=== PATIENT | male | born 1955 | race Caucasian/White ===

== ENCOUNTER 2016-07-17 19:30 | Emergency (ER) | payer MEDICARE, OTHER ==
[~2016-07-17 19:30] MED LIST: /ADVA50050 INH; /DICL25CA PO; /DILT60TAB PO; /METO5TA PO; /TAMS4CA PO; /WARF25TA PO; /WARF5TA PO; ACET65TA PO; ADV250INH INH; ALBU0.084 INH; ALBU17IN INH; ALTA1.25 PO; AMLO5TAB2 PO; ASPI32ECTA PO; ASPI81TA51 PO; ASPI81TA85 PO; ASPI81TAEC PO; ATROVENT0.02% INH; AUGM875T27 PO; AZIT250T3 PO; BABY81CH PO; CEFT500T PO; CEPH500C PO; CLOBETASOL PROP TOP; CLOP75TA2 PO; COLA100C PO; COLA100C2 OR; COLA100C2 PO; CRES20TA PO; DILA100C PO; DO NOT TAKE; DOXY75CA3 PO; DRIS1CAP PO; DULCOLAX PO; DULCOLAX PR; FINA5TAB2 PO; FISHOIL XX; FLOM5CAP PO; HYDR12.56 PO; IPRASOL12 IN; IPRASOL4 INH; LAMO150T PO; LAMO200T PO; LAMO300T PO; LEUP375KIT IM; LEVO500T PO; LISI2.5T PO; MULTIVIT PO; NEXI40CA PO; NYAM10003 TOP; OMEP20CA3 PO; PLAV75TA38 PO; PRED10TA2 PO; PRED20TA PO; PROAAER INH; Proscar PO; RAMI1.25 PO; REGL5TAB2 PO; SENO8.6T9 PO; SIMV20TA2 PO; TERA1CA PO; TYLE325T5 PO; VENTAER IN; VENTAER INH; VIMP200T PO; VITA500T3 PO; WARF2.5T38 PO; ZEST2.5T PO; ZEST5TAB PO; ZOLO50TA PO; ZYRT10TA2 PO; [UNRECOGNIZED DRUG - CODE] TOP
[2016-07-17 21:20] LABS: BASO # 0.1 K/mm3 (0.0-0.2); EOS # 0.5 K/mm3 (0.0-0.50); EOS % 5.1 % (0.0-3.0); LARGE UNSTAINED CELL # 0.1 K/mm3 (0.0-0.4); LARGE UNSTAINED CELL % 0.9 % (0.0-4.0); LYMPH # 1.3 K/mm3 (1.5-4.5); LYMPH % 11.1 % (24.0-44.0); MEAN CORPUSCULAR HEMOGLOBIN 29.2 pg (27.0-33.0); MEAN CORPUSCULAR HGB CONC 33.1 g/dl (32.0-36.5); MEAN CORPUSCULAR VOLUME 88.4 fl (80.0-96.0); MONO # 0.6 K/mm3 (0.0-0.8); MONO % 5.9 % (0.0-5.0); NEUTROPHILS # 7.9 K/mm3 (1.8-7.7); NEUTROPHILS % 76.1 % (36.0-66.0); PLATELET COUNT, AUTOMATED 203 k/mm3 (150-450); RED CELL DISTRIBUTION WIDTH 13.5 % (11.5-14.5); WHITE BLOOD COUNT 10.4 K/mm3 (4.0-10.0)
[2016-07-17 21:41] LABS: INR 0.96
[2016-07-17 21:50] LABS: ALBUMIN 2.9 GM/DL (3.2-5.2); ALBUMIN/GLOBULIN RATIO 0.94 (1.00-1.93); ALKALINE PHOSPHATASE 94 U/L (45-117); ALT/SGPT 19 U/L (12-78); AMYLASE 25 U/L (25-115); ANION GAP 9 MEQ/L (8-16); AST/SGOT 11 U/L (15-37); BILIRUBIN,DIRECT < 0.1 MG/DL (0.0-0.2); BILIRUBIN,TOTAL 0.3 MG/DL (0.2-1.0); BLOOD UREA NITROGEN 8 MG/DL (7-18); CALCIUM LEVEL 8.1 MG/DL (8.8-10.2); CARBON DIOXIDE LEVEL 31 MEQ/L (21-32); CHLORIDE LEVEL 101 MEQ/L (98-107); GLOMERULAR FILTRATION RATE > 60.0 (>49); GLUCOSE, FASTING 142 MG/DL (80-110); POTASSIUM SERUM 3.3 MEQ/L (3.5-5.1); SODIUM LEVEL 141 MEQ/L (136-145)
[2016-07-17] MEDS ORDERED: ONDANSETRON 4MG/2ML VIAL (J2405) As Ordered ONE (23:49)
[2016-07-18] MEDS ORDERED: ISOVUE-370 76% 100ML VIAL (Q9967) As Ordered ONE (00:18)
--- NOTE | 2016-07-18 02:20 | REPUSA ---
CLINICAL HISTORY: Abdominal pain. TECHNIQUE: Multiple axial, sagittal and coronal CT images were obtained through the abdomen and pelvi s after administration of intravenous contrast material. COMMENTS: Compared to 02/14/16 study. The liver is of uniform attenuation without mass or defect. There is no intra or extrahepatic biliary ductal dilatation. The spleen is normal. The gallbladder is within normal limits. The pancreas is of normal contour and attenuation characteristics. There is no evidence of adrenal mass. Both kidneys demonstrate prompt and equal nephrograms. The kidneys are normal in size, shape and conf iguration. There is no evidence of renal or ureteral mass. No renal or ureteral calculi are identifie d. There is mild bilateral hydroureteronephrosis noted. Bilateral extrarenal pelvii are noted. No evidence for appendicitis. There is no bowel wall thickening. No evidence for small or large sugar l obstruction. There is no evidence of abdominal ascites or lymphadenopathy. Patel catheter is in place. Air is present within urinary bladder. Diffuse bladder wall thickening seen compatible with cystitis. There is no evidence of intrinsic or extrinsic bladder mass. There is no pelvic ascites or lymphadenopathy. Images of the lung bases show no evidence of pleural or parenchymal mass. There are no pleural effusi ons. The bony structures are free of lytic or blastic lesions. Multilevel degenerative changes are seen in volving the thoracolumbar spine. Moderate compression deformities of T12 and L3. Scattered calcifications are seen involving the aorta and major branches compatible with atherosclero sis. IMPRESSION: Diffuse bladder wall thickening seen compatible with cystitis. Mild bilateral hydroureteronephrosis. Thank you for your kind referral of this patient.
[2016-07-18] MEDS ORDERED: CEPHALEXIN 250 MG CAP As Ordered ONE (03:02)
--- NOTE | 2016-07-18 03:21 | EDDOCDS ---
Physician Documentation [facility] Name: Mosby Alicea Age: 61 yrs Sex: Male : 1955 Arrival Date: 07/17/2016 Time: 19:30 Bed OBSERVATION Private MD: Laila Alvarado Disposition: 07/18/16 02:52 Discharged to Home/Self Care. Impression: Acute cystitis with hematuria. - Condition is Stable. - Discharge Instructions: Hematuria, Adult, Urinary Tract Infection, Urinary Tract Infection, [id number]. - Prescriptions for Keflex 500 mg Oral Capsule - take 1 capsule by ORAL route every 6 hours for 10 days; 40 capsule. - Medication Reconciliation, Local Pharmacy Hours form. - Follow up: Private Physician; When: Call to arrange an appointment; Reason: Continuance of care. - Problem is an acute exacerbation. - Symptoms have improved. - Notes: FOLLOW UP WITH YOUR PRIMARY UROLOGIST IN [place]. Historical: - Allergies: Cardizem; Cipro PO; SULFA (SULFONAMIDES); zonisamide; - Home Meds: 1. Oxygen continuous \T\ 4L NC 2. albuterol sulfate 90 mcg/actuation Inhl HFAA 1 puff every 6 hours 3. aspirin 325 mg oral tab once daily 4. Altace 1.25 mg Oral cap 1 cap once daily 5. Colace 100 mg oral cap 1 cap once daily 6. finasteride 5 mg oral tab 1 tab once daily 7. Plavix 75 mg Oral tab 1 tab once daily 8. lamotrigine 300 mg Oral tr24 1 tab twice a day 9. Flomax 0.4 mg Oral cp24 2 caps once daily 10. Vimpat 200 mg oral tab 2 tab 2 times per day 11. Reglan 5 mg Oral tab tid 12. loratadine 10 mg Oral tab 1 tab once daily 13. omeprazole 40 mg Oral cpDR 1 cap once daily 14. rosuvastatin 20 mg oral tab 1 tab once daily 15. Zyrtec 10 mg Oral tab 1 tab once daily - PMHx: BPH; COPD; CVA; Hypercholesterolemia; Myocardial infarction; Seizure Disorder; Sleep Apnea w/ CPAP; UTI; [place]; - PSHx: none; - Social history: Smoking status: Patient states former smoker of tobacco. 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 - Family history: Not pertinent. - : The pt / caregiver states he / she is on anticoagulants: Plavix. Home medication list is obtained from family members. - Exposure Risk Screening:: None identified. Vital Signs: 07/17 19:41 BP 121 / 82; Pulse 87; Resp 16; Temp 97.1(O); Pulse Ox 97% on 4 lpm NC; Weight 127.01 tm5 kg / 280.01 lbs; Height 6 ft. 1 in. (185.42 cm); Pain 0/10; 20:44 BP 126 / 87 (auto/); tm5 20:44 Pulse 90 MON; Pulse Ox 96% ; tm5 21:14 BP 135 / 81 (auto/); tm5 21:14 Pulse 90 MON; Pulse Ox 97% ; tm5 21:44 BP 118 / 63 (auto/); tm5 21:44 Pulse 86 MON; Resp 20 S; Pulse Ox 98% on 4 lpm NC; Pain 0/10; tm5 22:14 BP 110 / 72 (auto/); tm5 22:14 Pulse 82 MON; Pulse Ox 98% ; tm5 22:44 BP 119 / 75 (auto/); tm5 22:44 Pulse 78 MON; Resp 20 S; Pulse Ox 96% on 4 lpm NC; Pain 0/10; tm5 23:14 BP 146 / 84 (auto/); tm5 23:14 Pulse 78 MON; Pulse Ox 97% ; tm5 23:44 BP 149 / 90 (auto/); tm5 23:44 Pulse 90 MON; Resp 20 S; Pulse Ox 98% on 4 lpm NC; tm5 07/18 00:14 BP 118 / 76 (auto/); tm5 00:14 Pulse 80 MON; Resp 20 S; Pulse Ox 97% on 4 lpm NC; Pain 0/10; tm5 02:01 BP 118 / 74 (auto/); tm5 02:01 Pulse 70 MON; Resp 16 S; Pulse Ox 98% on 4 lpm NC; Pain 0/10; tm5 07/17 19:41 Body Mass Index 36.94 (127.01 kg, 185.42 cm) tm5 MDM: 07/17 20:48 IV Saline Lock ordered. mm11 20:48 Undress patient appropriately for examination ordered. mm11 20:48 Patel - [address] ordered. mm11 20:48 Bladder Irrigation ordered. mm11 20:49 Amylase Ordered. EDMS 20:49 Basic Metabolic Profile Ordered. EDMS 20:49 CBC with Diff Ordered. EDMS 20:49 Lipase Ordered. EDMS 20:49 Liver Profile Ordered. EDMS 20:49 Partial Thromboplastin Time Ordered. EDMS 20:49 Prothrombin Time Profile\E\INR Ordered. EDMS 20:49 Urinalysis Ordered. EDMS 20:50 Urine Culture Ordered. EDMS 20:50 NOTHING BY MOUTH+DIET ordered. EDMS 22:00 Basic Metabolic Profile Reviewed. mm11 22:00 CBC with Diff Reviewed. mm11 22:00 Liver Profile Reviewed. mm11 22:00 Urinalysis Reviewed. mm11 22:00 Amylase Reviewed. mm11 22:00 Lipase Reviewed. mm11 22:00 Partial Thromboplastin Time Reviewed. mm11 22:00 Prothrombin Time Profile\E\INR Reviewed. mm11 23:37 Financial registration complete. [email or web address] 23:42 [facility] Payment Agreement was scanned into [employer] and attached to record. [email or web address] 23:49 Ondansetron 4 mg IVP once ordered. mm11 23:50 CT ABD & PELVIS: IV Contrast Only Ordered. EDMS 07/18 02:38 CT ABD & PELVIS: IV Contrast Only Reviewed. mm11 02:51 Cephalexin 500 mg PO once ordered. mm11 Administered Medications: 07/17 23:50 Drug: Ondansetron 4 mg [ondansetron HCl 2 mg/mL intravenous solution (2 mL)] Route: tm5 IVP; Site: left forearm; 07/18 00:19 Follow up: Response: Nausea is decreased; No Adverse Reaction tm5 03:18 Drug: Cephalexin 500 mg [cephalexin 250 mg capsule (2 caps)] Route: PO; tm5 03:18 Follow up: Response: Pt left department before re-evaluation is appropriate tm5 Signatures: Dispatcher [employer] EDMS Adam Dempsey DO DO mm11 Marissa Alvarez, Reg Reg [email or web address] Vane Sanford RN RN tm5 The chart was reviewed and I authenticate all verbal orders and agree with the evaluation and treatment provided.Attachments: 07/17 23:42 [facility] Payment Agreement [email or web address]
--- NOTE | 2016-07-18 03:21 | EDDOCDS ---
Nurse's Notes [facility] Name: Laz Alicea Age: 61 yrs Sex: Male : 1955 Arrival Date: 07/17/2016 Time: 19:30 Bed OBSERVATION Private MD: Laila Alvarado Diagnosis: Acute cystitis with hematuria Presentation: 07/17 19:34 Presenting complaint: EMS states: per EMS pt here for Blood noted to Newberry catheter pt tm5 has been home form a Rehab center for only a few days now, public health nurse sent here for evaluation, pt wears O2 \T\ 2L NC at all times, pt complains of chills. Suicide/Homicide risk assessment- the patient denies having any suicidal and/or homicidal ideations and does not present with any other emotional, behavioral or mental health complaints. Status: Patient is not a retail service representative or dependent. Transition of care: patient was not received from another setting of care. 19:34 Acuity: STEPHON Level 3 tm5 19:34 Method Of Arrival: Ambulance tm5 07/18 03:20 Adult Sepsis Screening: The patient does not have new or worsening altered mentation. tm5 Patient's respiratory rate is less than 22. Systolic blood pressure is greater than 100. Patient has a qSOFA score of 0- Negative Sepsis Screen. Triage Assessment: 07/17 19:41 General: Appears in no apparent distress, Behavior is appropriate for age, cooperative. tm5 Pain: Denies pain. HIV screening NA for this visit Offered previously. The patient is triaged at the bedside. See Assessment in Nurses Notes section of ED record. Neurological: Level of Consciousness is awake, alert, Oriented to person, place, time. Respiratory: Airway is patent Respiratory effort is even, unlabored, Respiratory pattern is regular, symmetrical, Breath sounds are clear bilaterally. : Newberry in place Reports hematuria gross amounts of blood noted to pt's newberry. Derm: Skin is pink, warm & dry. normal. Historical: - Allergies: Cardizem; Cipro PO; SULFA (SULFONAMIDES); zonisamide; - Home Meds: 1. Oxygen continuous \T\ 4L NC 2. albuterol sulfate 90 mcg/actuation Inhl HFAA 1 puff every 6 hours 3. aspirin 325 mg oral tab once daily 4. Altace 1.25 mg Oral cap 1 cap once daily 5. Colace 100 mg oral cap 1 cap once daily 6. finasteride 5 mg oral tab 1 tab once daily 7. Plavix 75 mg Oral tab 1 tab once daily 8. lamotrigine 300 mg Oral tr24 1 tab twice a day 9. Flomax 0.4 mg Oral cp24 2 caps once daily 10. Vimpat 200 mg oral tab 2 tab 2 times per day 11. Reglan 5 mg Oral tab tid 12. loratadine 10 mg Oral tab 1 tab once daily 13. omeprazole 40 mg Oral cpDR 1 cap once daily 14. rosuvastatin 20 mg oral tab 1 tab once daily 15. Zyrtec 10 mg Oral tab 1 tab once daily - PMHx: BPH; COPD; CVA; Hypercholesterolemia; Myocardial infarction; Seizure Disorder; Sleep Apnea w/ CPAP; UTI; Pnemonia; - PSHx: none; - Social history: Smoking status: Patient states former smoker of tobacco. 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 - Family history: Not pertinent. - : The pt / caregiver states he / she is on anticoagulants: Plavix. Home medication list is obtained from family members. - Exposure Risk Screening:: None identified. Screenin:45 Screening information is obtained from the patient. Fall risk: At risk due to gait tm5 disturbance. Assistance ADL's: Requires assistance with meal preparation, this assistance is provided by bathing, assistance is provided by dressing, assistance is provided by toileting, assistance is provided by ambulation, assistance is provided by housework, assistance is provided by medication administration, assistance is provided by family members. Abuse/DV Screen: The patient / caregiver reports he/she is: not in a situation that causes fear, pain or injury. Nutritional screening: No deficits noted. Advance Directives: Currently, there is no health care proxy. There is no active DNR order. home support is adequate. Assessment: 00:50 General: called to pt's room by his son, CBI is leaking from pt's penis & his bed is tm5 saturated with NS solution from irrigation bag, complete bed change done by this RN, pt's newberry was irrigated with 60cc NS with blood clots returned in syringe, newberry now patent with pink tinged urine, no blood clots noted, emptied 1100cc from newberry drainage bag unsure of how much if this is NS irrigation fluid vs. Urine, irrigation stopped at this time to re-assess newberry drainage & blood return, pt voices no complaints of bladder discomfort or pain, pt was repositioned several times with bed change when pt was sat up in bed he vomited about 200cc of emesis, MD aware orders received . 19:45 General: see triage assessment . tm5 22:15 Reassessment: Patient appears in no apparent distress at this time. Patient denies pain tm5 at this time. 22:48 Reassessment: Patient appears in no apparent distress at this time. Patient denies pain tm5 at this time. Patient states symptoms have improved. bladder irrigation continues, urine in newberry is less bloody, light red in color, no blood clots noted, pt voices no complaints. 07/18 00:49 General: newberry catheter had to be irrigated again with 60cc NS, small blood clot tm5 returned but newberry started again to drain pink tinged urine, pt voices no complaints of at this time. Pain: Denies pain. 01:59 Reassessment: Patient appears in no apparent distress at this time. Patient states tm5 feeling better. Patient states symptoms have improved. pt appears to be sleeping at this time, resp easy, no s/s of any distress. 03:18 Reassessment: catheter plug inserted to irrigation port on 3 way catheter for pt's tm5 discharge. Vital Signs: 07/17 19:41 BP 121 / 82; Pulse 87; Resp 16; Temp 97.1(O); Pulse Ox 97% on 4 lpm NC; Weight 127.01 tm5 kg; Height 6 ft. 1 in. (185.42 cm); Pain 0/10; 20:44 BP 126 / 87 (auto/); tm5 20:44 Pulse 90 MON; Pulse Ox 96% ; tm5 21:14 BP 135 / 81 (auto/); tm5 21:14 Pulse 90 MON; Pulse Ox 97% ; tm5 21:44 BP 118 / 63 (auto/); tm5 21:44 Pulse 86 MON; Resp 20 S; Pulse Ox 98% on 4 lpm NC; Pain 0/10; tm5 22:14 BP 110 / 72 (auto/); tm5 22:14 Pulse 82 MON; Pulse Ox 98% ; tm5 22:44 BP 119 / 75 (auto/); tm5 22:44 Pulse 78 MON; Resp 20 S; Pulse Ox 96% on 4 lpm NC; Pain 0/10; tm5 23:14 BP 146 / 84 (auto/); tm5 23:14 Pulse 78 MON; Pulse Ox 97% ; tm5 23:44 BP 149 / 90 (auto/); tm5 23:44 Pulse 90 MON; Resp 20 S; Pulse Ox 98% on 4 lpm NC; tm5 07/18 00:14 BP 118 / 76 (auto/); tm5 00:14 Pulse 80 MON; Resp 20 S; Pulse Ox 97% on 4 lpm NC; Pain 0/10; tm5 02:01 BP 118 / 74 (auto/); tm5 02:01 Pulse 70 MON; Resp 16 S; Pulse Ox 98% on 4 lpm NC; Pain 0/10; tm5 07/17 19:41 Body Mass Index 36.94 (127.01 kg, 185.42 cm) tm5 Vitals: 07/17 19:41 Log In Time N/A - ambulance arrival. tm5 ED Course: 19:31 Crystal Phoenix,JOHN is Primary Nurse. [facility] 19:31 Patient visited by Bekah Gan, Director Of Instructional Technology. jlm 19:31 Laila Alvarado is Private Physician. jl 19:31 Patient moved to 13 jl 19:34 Patient visited by Vane Sanford,JOHN. tm5 19:36 Triage Initiated tm5 19:45 Awaiting ED physician evaluation. tm5 19:45 The patient / caregiver is instructed regarding the plan of care and ED course. Pulse tm5 ox on. NIBP on. 19:45 pt arrived with indwelling catheter from Rehab facility per EMS. tm5 20:18 Patient visited by Vane Sanford,JOHN. tm5 20:18 Awaiting ED physician evaluation. tm5 20:32 Adam Dempsey DO is Attending Physician. mm11 20:32 Patient visited by Adam Dempsey DO. mm11 20:47 Patient visited by Adam Dempsey DO. mm11 21:08 Amylase Sent. tm5 21:08 Basic Metabolic Profile Sent. tm5 21:08 CBC with Diff Sent. tm5 21:08 Lipase Sent. tm5 21:08 Liver Profile Sent. tm5 21:09 Partial Thromboplastin Time Sent. tm5 21:09 Prothrombin Time Profile\E\INR Sent. tm5 21:09 Inserted saline lock: 18 gauge in left forearm and blood collected. The patient tm5 tolerated the procedure well. Labs drawn. (by ED staff). Sent per order to lab. 21:35 Newberry cath removed intact, balloon deflated, indwelling newberry catheter removed per tm5 orders to replace it with 3 way newberry for irrigation, approx 300 cc of bloody tinged urine emptied from this newberry, pt tolerated well. 21:36 Newberry cath inserted 18 Fr. Balloon inflated. To gravity drainage. Urine specimen tm5 collected. other 3 way newberry inserted for bladder irrigation returned bloody urine. Patient tolerated well. Bladder irrigated via Newberry normal saline returned bloddy pink tinged urine with shreds of blood clots noted Patient tolerated well. 22:15 Patient visited by Vane Sanford RN. tm5 22:48 Patient visited by Vane Sanford RN. tm5 22:57 Primary Nurse role handed off by Crystal Phoenix RN [id number] 23:42 [facility] Payment Agreement was scanned into [employer] and attached to record. [id number] 23:54 Patient visited by Adam Dempsey DO. mm11 07/18 00:[address] back [address]. tm5 00:55 Patient visited by Vane Sanford RN. tm5 01:01 Patient moved to OBSERVATION mm11 02:24 CT ABD & PELVIS: IV Contrast Only Returned. EDMS 03:18 Discontinued lock intact, bleeding controlled, pressure dressing applied, No tm5 redness/swelling at site. 03:18 No procedures done that require assistance. tm5 Administered Medications: 07/17 23:50 Drug: Ondansetron 4 mg [ondansetron HCl 2 mg/mL intravenous solution (2 mL)] Route: tm5 IVP; Site: left forearm; 07/18 00:19 Follow up: Response: Nausea is decreased; No Adverse Reaction tm5 03:18 Drug: Cephalexin 500 mg [cephalexin 250 mg capsule (2 caps)] Route: PO; tm5 03:18 Follow up: Response: Pt left department before re-evaluation is appropriate tm5 Output: 07/17 21:36 Urine: 1300.00ml (Newberry); Total: 1300.00ml. tm5 22:48 Urine: 700.00ml (Newberry); Total: 2000.00ml. tm5 23:44 Urine: 1100.00ml (Newberry); Total: 3100.00ml. tm5 07/18 02:01 Urine: 800.00ml (Newberry); Total: 3900.00ml. tm5 Order Results: Lab Order: Amylase; SPEC'M 07/17/16 21:07 Test: AMYLASE; Value: 25; Range: 25-115; Units: U/L; Status: F Lab Order: Basic Metabolic Profile; SPEC'M 07/17/16 21:07 Test: GLUCOSE, FASTING; Value: 142; Range: 80-110; Abnormal: Above high normal; Units: MG/DL; Status: F Test: BLOOD UREA NITROGEN; Value: 8; Range: 7-18; Units: MG/DL; Status: F Test: CREATININE FOR GFR; Value: 1.00; Range: 0.70-1.30; Units: MG/DL; Status: F Test: GLOMERULAR FILTRATION RATE; Value: > 60.0; Range: >49; Status: F Test: SODIUM LEVEL; Value: 141; Range: 136-145; Units: MEQ/L; Status: F Test: POTASSIUM SERUM; Value: 3.3; Range: 3.5-5.1; Abnormal: Below low normal; Units: MEQ/L; Status: F Test: CHLORIDE LEVEL; Value: 101; Range: 98-107; Units: MEQ/L; Status: F Test: CARBON DIOXIDE LEVEL; Value: 31; Range: 21-32; Units: MEQ/L; Status: F Test: ANION GAP; Value: 9; Range: 8-16; Units: MEQ/L; Status: F Test: CALCIUM LEVEL; Value: 8.1; Range: 8.8-10.2; Abnormal: Below low normal; Units: MG/DL; Status: F Test Note: ; Units are mL/min/1.73 m2 Chronic Kidney Disease Staging per NKF: Stage I & II GFR >=60 Normal to Mildly Decreased Stage III GFR 30-59 Moderately Decreased Stage IV GFR 15-29 Severely Decreased Stage V GFR <15 Very Little GFR Left ESRD GFR <15 on PRESENTATION TEAM MEMBER Lab Order: CBC with Diff; SPEC'M 07/17/16 21:07 Test: WHITE BLOOD COUNT; Value: 10.4; Range: 4.0-10.0; Abnormal: Above high normal; Units: K/mm3; Status: F Test: RED BLOOD COUNT; Value: 4.35; Range: 4.30-6.10; Units: M/mm3; Status: F Test: HEMOGLOBIN; Value: 12.7; Range: 14.0-18.0; Abnormal: Below low normal; Units: g/dl; Status: F Test: HEMATOCRIT; Value: 38.4; Range: 42.0-52.0; Abnormal: Below low normal; Units: %; Status: F Test: MEAN CORPUSCULAR VOLUME; Value: 88.4; Range: 80.0-96.0; Units: fl; Status: F Test: MEAN CORPUSCULAR HEMOGLOBIN; Value: 29.2; Range: 27.0-33.0; Units: pg; Status: F Test: MEAN CORPUSCULAR HGB CONC; Value: 33.1; Range: 32.0-36.5; Units: g/dl; Status: F Test: RED CELL DISTRIBUTION WIDTH; Value: 13.5; Range: 11.5-14.5; Units: %; Status: F Test: PLATELET COUNT, AUTOMATED; Value: 203; Range: 150-450; Units: k/mm3; Status: F Test: NEUTROPHILS %; Value: 76.1; Range: 36.0-66.0; Abnormal: Above high normal; Units: %; Status: F Test: LYMPH %; Value: 11.1; Range: 24.0-44.0; Abnormal: Below low normal; Units: %; Status: F Test: MONO %; Value: 5.9; Range: 0.0-5.0; Abnormal: Above high normal; Units: %; Status: F Test: EOS %; Value: 5.1; Range: 0.0-3.0; Abnormal: Above high normal; Units: %; Status: F Test: BASO %; Value: 1.0; Range: 0.0-1.0; Units: %; Status: F Test: LARGE UNSTAINED CELL %; Value: 0.9; Range: 0.0-4.0; Units: %; Status: F Test: NEUTROPHILS #; Value: 7.9; Range: 1.8-7.7; Abnormal: Above high normal; Units: K/mm3; Status: F Test: LYMPH #; Value: 1.3; Range: 1.5-4.5; Abnormal: Below low normal; Units: K/mm3; Status: F Test: MONO #; Value: 0.6; Range: 0.0-0.8; Units: K/mm3; Status: F Test: EOS #; Value: 0.5; Range: 0.0-0.50; Units: K/mm3; Status: F Test: BASO #; Value: 0.1; Range: 0.0-0.2; Units: K/mm3; Status: F Test: LARGE UNSTAINED CELL #; Value: 0.1; Range: 0.0-0.4; Units: K/mm3; Status: F Lab Order: Lipase; [facility] 07/17/16 21:07 Test: LIPASE; Value: 112; Range: 73-393; Units: U/L; Status: F Lab Order: Liver Profile; [facility] 07/17/16 21:07 Test: AST/SGOT; Value: 11; Range: 15-37; Abnormal: Below low normal; Units: U/L; Status: F Test: ALT/SGPT; Value: 19; Range: 12-78; Units: U/L; Status: F Test: ALKALINE PHOSPHATASE; Value: 94; Range: 45-117; Units: U/L; Status: F Test: BILIRUBIN,TOTAL; Value: 0.3; Range: 0.2-1.0; Units: MG/DL; Status: F Test: BILIRUBIN,DIRECT; Value: < 0.1; Range: 0.0-0.2; Units: MG/DL; Status: F Test: TOTAL PROTEIN; Value: 6.0; Range: 6.4-8.2; Abnormal: Below low normal; Units: GM/DL; Status: F Test: ALBUMIN; Value: 2.9; Range: 3.2-5.2; Abnormal: Below low normal; Units: GM/DL; Status: F Test: ALBUMIN/GLOBULIN RATIO; Value: 0.94; Range: 1.00-1.93; Abnormal: Below low normal; Status: F Lab Order: Partial Thromboplastin Time; [facility] 07/17/16 21:07 Test: PARTIAL THROMBOPLASTIN TIME; Value: 28.1; Range: 26.6-37.1; Units: SECONDS; Status: F Lab Order: Prothrombin Time Profile\E\INR; [facility] 07/17/16 21:07 Test: PROTHROMBIN TIME; Value: 12.9; Range: 12.3-14.5; Units: SECONDS; Status: F Test: INR; Value: 0.96; Status: F Test Note: ; THERAPUTIC HUMAN INR VALUES INDICATIONS NORMAL RANGES PROPHYLAXIS/TREATMENT OF: VENOUS THROMBOSIS 2.0-3.0 PULMONARY EMBOLISM 2.0-3.0 PREVENTION OF SYSTEMIC EMBOLISM FROM: TISSUE HEART VALVES 2.0-3.0 ACUTE MYOCARDIAL INFARCTION 2.0-3.0 VALVULAR HEART DISEASE 2.0-3.0 ATRIAL FIBRILLATION 2.0-3.0 MECHANICAL VALVES(HIGH RISK) 2.5-3.5 RECURRENT MYOCARDIAL INFARCTION 2.5-3.5 Lab Order: Urinalysis; [facility] 07/17/16 21:07 Test: APPEARANCE, URINE; Value: CLOUDY; Range: CLEAR; Abnormal: Above high normal; Status: F Test: COLOR, URINE; Value: RED; Range: YELLOW; Abnormal: Above high normal; Status: F Test: PH,URINE; Value: 6.0; Range: 5.0-9.0; Units: UNITS; Status: F Test: SPECIFIC GRAVITY URINE AUTO; Value: 1.006; Range: 1.002-1.035; Status: F Test: PROTEIN, URINE AUTO; Value: 1+; Range: NEGATIVE; Abnormal: Above high normal; Units: mg/dL; Status: F Test: GLUCOSE, URINE (UA) AUTO; Value: NEGATIVE; Range: NEGATIVE; Units: mg/dL; Status: F Test: KETONE, URINE AUTO; Value: NEGATIVE; Range: NEGATIVE; Units: mg/dL; Status: F Test: UROBILINOGEN, URINE AUTO; Value: 0.2; Range: 0.0-2.0; Units: mg/dL; Status: F Test: BILIRUBIN, URINE AUTO; Value: NEGATIVE; Range: NEGATIVE; Status: F Test: NITRITE, URINE AUTO; Value: NEGATIVE; Range: NEGATIVE; Status: F Test: LEUKOCYTE ESTERASE, URINE AUTO; Value: 3+; Range: NEGATIVE; Abnormal: Above high normal; Status: F Test: BLOOD, URINE BLOOD; Value: 3+; Range: NEGATIVE; Abnormal: Above high normal; Status: F Test: WBC, URINE AUTO; Value: TNTC; Range: 0-3; Abnormal: Above high normal; Units: /HPF; Status: F Test: RBC, URINE AUTO; Value: TNTC; Range: 0-3; Abnormal: Above high normal; Units: /HPF; Status: F Test: BACTERIA, URINE AUTO; Value: 1+; Range: NEGATIVE; Abnormal: Above high normal; Status: F Test: SQUAMOUS EPITHELIAL CELL UR AU; Value: 0; Range: 0-6; Units: /HPF; Status: F Test: MUCUS, URINE; Value: SMALL; Range: NEGATIVE; Status: F Test: HYALINE CAST, URINE AUTO; Value: 0; Range: 0-1; Units: /LPF; Status: F Radiology Order: CT ABD & PELVIS: IV Contrast Only Test: CT ABD & PELVIS: IV Contrast Only REASON FOR EXAMINATION: abd pain, gross hematuria; ; CLINICAL HISTORY: Abdominal pain.; TECHNIQUE: Multiple axial, sagittal and coronal CT images were obtained through the abdomen and pelvi; s after administration of intravenous contrast material.; COMMENTS: Compared to 02/14/16 study.; The liver is of uniform attenuation without mass or defect. There is no intra or extrahepatic biliary; ductal dilatation. The spleen is normal. The gallbladder is within normal limits. The pancreas is of; normal contour and attenuation characteristics. There is no evidence of adrenal mass.; Both kidneys demonstrate prompt and equal nephrograms. The kidneys are normal in size, shape and conf; iguration. There is no evidence of renal or ureteral mass. No renal or ureteral calculi are identifie; d. There is mild bilateral hydroureteronephrosis noted. Bilateral extrarenal pelvii are noted.; No evidence for appendicitis. There is no bowel wall thickening. No evidence for small or large sugar; l obstruction. There is no evidence of abdominal ascites or lymphadenopathy.; Newberry catheter is in place. Air is present within urinary bladder. Diffuse bladder wall thickening; seen compatible with cystitis. There is no evidence of intrinsic or extrinsic bladder mass. There is; no pelvic ascites or lymphadenopathy.; Images of the lung bases show no evidence of pleural or parenchymal mass. There are no pleural effusi; ons.; The bony structures are free of lytic or blastic lesions. Multilevel degenerative changes are seen in; volving the thoracolumbar spine. Moderate compression deformities of T12 and L3.; Scattered calcifications are seen involving the aorta and major branches compatible with atherosclero; sis.; IMPRESSION:; Diffuse bladder wall thickening seen compatible with cystitis.; Mild bilateral hydroureteronephrosis.; Thank you for your kind referral of this patient.; ; Outcome: 02:52 Discharge ordered by Provider. mm11 03:18 Discharge Assessment: Patient awake, alert and oriented x 3. No cognitive and/or tm5 functional deficits noted. Patient verbalized understanding of disposition instructions. patient administered narcotics - no. The following High Risk Discharge criteria are identified: None. Discharged to home via wheelchair, with family. Condition: good Condition: stable Condition: improved. Discharge instructions given to patient, Instructed on discharge instructions, follow up and referral plans. medication usage, Demonstrated understanding of instructions, medications, Pt was receptive of discharge instructions/ teaching. Prescriptions given X 1. CT Study completed. Property :Personal belongings accompany Pt. 03:20 Patient left the ED. tm5 Signatures: Dispatcher [employer] EDMS Adam Dempsey, DO mm11 Bekah Gan, Director Of Instructional Technology Unit Crystal Toro,JOHN RN [id number] Marissa Alvarez, Reg Reg [id number] Vane Sanford RN RN tm5 MTDD
--- NOTE | 2016-07-20 04:22 | EDDOCDS ---
Physician Documentation [facility] Name: Troy Alicea Age: 61 yrs Sex: Male : 1955 Arrival Date: 07/17/2016 Time: 19:30 Bed OBSERVATION Private MD: Laila Alvarado Disposition: 07/18/16 02:52 Discharged to Home/Self Care. Impression: Acute cystitis with hematuria. - Condition is Stable. - Discharge Instructions: Hematuria, Adult, Urinary Tract Infection, Urinary Tract Infection, [id number]. - Prescriptions for Keflex 500 mg Oral Capsule - take 1 capsule by ORAL route every 6 hours for 10 days; 40 capsule. - Medication Reconciliation, Local Pharmacy Hours form. - Follow up: Private Physician; When: Call to arrange an appointment; Reason: Continuance of care. - Problem is an acute exacerbation. - Symptoms have improved. - Notes: FOLLOW UP WITH YOUR PRIMARY UROLOGIST IN [place]. Historical: - Allergies: Cardizem; Cipro PO; SULFA (SULFONAMIDES); zonisamide; - Home Meds: 1. Oxygen continuous \T\ 4L NC 2. albuterol sulfate 90 mcg/actuation Inhl HFAA 1 puff every 6 hours 3. aspirin 325 mg oral tab once daily 4. Altace 1.25 mg Oral cap 1 cap once daily 5. Colace 100 mg oral cap 1 cap once daily 6. finasteride 5 mg oral tab 1 tab once daily 7. Plavix 75 mg Oral tab 1 tab once daily 8. lamotrigine 300 mg Oral tr24 1 tab twice a day 9. Flomax 0.4 mg Oral cp24 2 caps once daily 10. Vimpat 200 mg oral tab 2 tab 2 times per day 11. Reglan 5 mg Oral tab tid 12. loratadine 10 mg Oral tab 1 tab once daily 13. omeprazole 40 mg Oral cpDR 1 cap once daily 14. rosuvastatin 20 mg oral tab 1 tab once daily 15. Zyrtec 10 mg Oral tab 1 tab once daily - PMHx: BPH; COPD; CVA; Hypercholesterolemia; Myocardial infarction; Seizure Disorder; Sleep Apnea w/ CPAP; UTI; [place]; - PSHx: none; - Social history: Smoking status: Patient states former smoker of tobacco. 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 - Family history: Not pertinent. - : The pt / caregiver states he / she is on anticoagulants: Plavix. Home medication list is obtained from family members. - Exposure Risk Screening:: None identified. Vital Signs: 07/17 19:41 BP 121 / 82; Pulse 87; Resp 16; Temp 97.1(O); Pulse Ox 97% on 4 lpm NC; Weight 127.01 tm5 kg / 280.01 lbs; Height 6 ft. 1 in. (185.42 cm); Pain 0/10; 20:44 BP 126 / 87 (auto/); tm5 20:44 Pulse 90 MON; Pulse Ox 96% ; tm5 21:14 BP 135 / 81 (auto/); tm5 21:14 Pulse 90 MON; Pulse Ox 97% ; tm5 21:44 BP 118 / 63 (auto/); tm5 21:44 Pulse 86 MON; Resp 20 S; Pulse Ox 98% on 4 lpm NC; Pain 0/10; tm5 22:14 BP 110 / 72 (auto/); tm5 22:14 Pulse 82 MON; Pulse Ox 98% ; tm5 22:44 BP 119 / 75 (auto/); tm5 22:44 Pulse 78 MON; Resp 20 S; Pulse Ox 96% on 4 lpm NC; Pain 0/10; tm5 23:14 BP 146 / 84 (auto/); tm5 23:14 Pulse 78 MON; Pulse Ox 97% ; tm5 23:44 BP 149 / 90 (auto/); tm5 23:44 Pulse 90 MON; Resp 20 S; Pulse Ox 98% on 4 lpm NC; tm5 07/18 00:14 BP 118 / 76 (auto/); tm5 00:14 Pulse 80 MON; Resp 20 S; Pulse Ox 97% on 4 lpm NC; Pain 0/10; tm5 02:01 BP 118 / 74 (auto/); tm5 02:01 Pulse 70 MON; Resp 16 S; Pulse Ox 98% on 4 lpm NC; Pain 0/10; tm5 07/17 19:41 Body Mass Index 36.94 (127.01 kg, 185.42 cm) tm5 MDM: 07/17 20:48 IV Saline Lock ordered. mm11 20:48 Undress patient appropriately for examination ordered. mm11 20:48 Patel - [address] ordered. mm11 20:48 Bladder Irrigation ordered. mm11 20:49 Amylase Ordered. EDMS 20:49 Basic Metabolic Profile Ordered. EDMS 20:49 CBC with Diff Ordered. EDMS 20:49 Lipase Ordered. EDMS 20:49 Liver Profile Ordered. EDMS 20:49 Partial Thromboplastin Time Ordered. EDMS 20:49 Prothrombin Time Profile\E\INR Ordered. EDMS 20:49 Urinalysis Ordered. EDMS 20:50 Urine Culture Ordered. EDMS 20:50 NOTHING BY MOUTH+DIET ordered. EDMS 22:00 Basic Metabolic Profile Reviewed. mm11 22:00 CBC with Diff Reviewed. mm11 22:00 Liver Profile Reviewed. mm11 22:00 Urinalysis Reviewed. mm11 22:00 Amylase Reviewed. mm11 22:00 Lipase Reviewed. mm11 22:00 Partial Thromboplastin Time Reviewed. mm11 22:00 Prothrombin Time Profile\E\INR Reviewed. mm11 23:37 Financial registration complete. [id number] 23:42 [facility] Payment Agreement was scanned into [employer] and attached to record. [id number] 23:49 Ondansetron 4 mg IVP once ordered. mm11 23:50 CT ABD & PELVIS: IV Contrast Only Ordered. EDCA 07/18 02:38 CT ABD & PELVIS: IV Contrast Only Reviewed. mm11 02:51 Cephalexin 500 mg PO once ordered. 11 :28 T-Sheet-- Draft Copy was scanned into [employer] and attached to record. klr Administered Medications: 07/17 23:50 Drug: Ondansetron 4 mg [ondansetron HCl 2 mg/mL intravenous solution (2 mL)] Route: tm5 IVP; Site: left forearm; 07/18 00:19 Follow up: Response: Nausea is decreased; No Adverse Reaction tm5 03:18 Drug: Cephalexin 500 mg [cephalexin 250 mg capsule (2 caps)] Route: PO; tm5 03:18 Follow up: Response: Pt left department before re-evaluation is appropriate tm5 Signatures: Dispatcher [employer] EDMS Adam Dempsey DO DO mm11 Marissa Alvarez, Reg Reg [email or web address] Radha Levin Tonya, RN RN tm5 The chart was reviewed and I authenticate all verbal orders and agree with the evaluation and treatment provided.Attachments: 07/17 23:42 [facility] Payment Agreement [facility] 07/18 22:28 T-Sheet-- Draft Copy klr Chart Complete MTDD
--- NOTE | 2016-07-20 04:22 | EDDOCDS ---
Nurse's Notes [facility] Name: Laz Alicea Age: 61 yrs Sex: Male : 1955 Arrival Date: 07/17/2016 Time: 19:30 Bed OBSERVATION Private MD: Laila Alvarado Diagnosis: Acute cystitis with hematuria Presentation: 07/17 19:34 Presenting complaint: EMS states: per EMS pt here for Blood noted to Newberry catheter pt tm5 has been home form a Rehab center for only a few days now, public health nurse sent here for evaluation, pt wears O2 \T\ 2L NC at all times, pt complains of chills. Suicide/Homicide risk assessment- the patient denies having any suicidal and/or homicidal ideations and does not present with any other emotional, behavioral or mental health complaints. 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 Transition of care: patient was not received from another setting of care. 19:34 Acuity: STEPHON Level 3 tm5 19:34 Method Of Arrival: Ambulance tm5 07/18 03:20 Adult Sepsis Screening: The patient does not have new or worsening altered mentation. tm5 Patient's respiratory rate is less than 22. Systolic blood pressure is greater than 100. Patient has a qSOFA score of 0- Negative Sepsis Screen. Triage Assessment: 07/17 19:41 General: Appears in no apparent distress, Behavior is appropriate for age, cooperative. tm5 Pain: Denies pain. HIV screening NA for this visit Offered previously. The patient is triaged at the bedside. See Assessment in Nurses Notes section of ED record. Neurological: Level of Consciousness is awake, alert, Oriented to person, place, time. Respiratory: Airway is patent Respiratory effort is even, unlabored, Respiratory pattern is regular, symmetrical, Breath sounds are clear bilaterally. : Newberry in place Reports hematuria gross amounts of blood noted to pt's newberry. Derm: Skin is pink, warm & dry. normal. Historical: - Allergies: Cardizem; Cipro PO; SULFA (SULFONAMIDES); zonisamide; - Home Meds: 1. Oxygen continuous \T\ 4L NC 2. albuterol sulfate 90 mcg/actuation Inhl HFAA 1 puff every 6 hours 3. aspirin 325 mg oral tab once daily 4. Altace 1.25 mg Oral cap 1 cap once daily 5. Colace 100 mg oral cap 1 cap once daily 6. finasteride 5 mg oral tab 1 tab once daily 7. Plavix 75 mg Oral tab 1 tab once daily 8. lamotrigine 300 mg Oral tr24 1 tab twice a day 9. Flomax 0.4 mg Oral cp24 2 caps once daily 10. Vimpat 200 mg oral tab 2 tab 2 times per day 11. Reglan 5 mg Oral tab tid 12. loratadine 10 mg Oral tab 1 tab once daily 13. omeprazole 40 mg Oral cpDR 1 cap once daily 14. rosuvastatin 20 mg oral tab 1 tab once daily 15. Zyrtec 10 mg Oral tab 1 tab once daily - PMHx: BPH; COPD; CVA; Hypercholesterolemia; Myocardial infarction; Seizure Disorder; Sleep Apnea w/ CPAP; UTI; Pnemonia; - PSHx: none; - Social history: Smoking status: Patient states former smoker of tobacco. 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 - Family history: Not pertinent. - : The pt / caregiver states he / she is on anticoagulants: Plavix. Home medication list is obtained from family members. - Exposure Risk Screening:: None identified. Screenin:45 Screening information is obtained from the patient. Fall risk: At risk due to gait tm5 disturbance. Assistance ADL's: Requires assistance with meal preparation, this assistance is provided by bathing, assistance is provided by dressing, assistance is provided by toileting, assistance is provided by ambulation, assistance is provided by housework, assistance is provided by medication administration, assistance is provided by family members. Abuse/DV Screen: The patient / caregiver reports he/she is: not in a situation that causes fear, pain or injury. Nutritional screening: No deficits noted. Advance Directives: Currently, there is no health care proxy. There is no active DNR order. home support is adequate. Assessment: 00:50 General: called to pt's room by his son, CBI is leaking from pt's penis & his bed is tm5 saturated with NS solution from irrigation bag, complete bed change done by this RN, pt's newberry was irrigated with 60cc NS with blood clots returned in syringe, newberry now patent with pink tinged urine, no blood clots noted, emptied 1100cc from newberry drainage bag unsure of how much if this is NS irrigation fluid vs. Urine, irrigation stopped at this time to re-assess newberry drainage & blood return, pt voices no complaints of bladder discomfort or pain, pt was repositioned several times with bed change when pt was sat up in bed he vomited about 200cc of emesis, MD aware orders received . 19:45 General: see triage assessment . tm5 22:15 Reassessment: Patient appears in no apparent distress at this time. Patient denies pain tm5 at this time. 22:48 Reassessment: Patient appears in no apparent distress at this time. Patient denies pain tm5 at this time. Patient states symptoms have improved. bladder irrigation continues, urine in newberry is less bloody, light red in color, no blood clots noted, pt voices no complaints. 07/18 00:49 General: newberry catheter had to be irrigated again with 60cc NS, small blood clot tm5 returned but newberry started again to drain pink tinged urine, pt voices no complaints of at this time. Pain: Denies pain. 01:59 Reassessment: Patient appears in no apparent distress at this time. Patient states tm5 feeling better. Patient states symptoms have improved. pt appears to be sleeping at this time, resp easy, no s/s of any distress. 03:18 Reassessment: catheter plug inserted to irrigation port on 3 way catheter for pt's tm5 discharge. Vital Signs: 07/17 19:41 BP 121 / 82; Pulse 87; Resp 16; Temp 97.1(O); Pulse Ox 97% on 4 lpm NC; Weight 127.01 tm5 kg; Height 6 ft. 1 in. (185.42 cm); Pain 0/10; 20:44 BP 126 / 87 (auto/); tm5 20:44 Pulse 90 MON; Pulse Ox 96% ; tm5 21:14 BP 135 / 81 (auto/); tm5 21:14 Pulse 90 MON; Pulse Ox 97% ; tm5 21:44 BP 118 / 63 (auto/); tm5 21:44 Pulse 86 MON; Resp 20 S; Pulse Ox 98% on 4 lpm NC; Pain 0/10; tm5 22:14 BP 110 / 72 (auto/); tm5 22:14 Pulse 82 MON; Pulse Ox 98% ; tm5 22:44 BP 119 / 75 (auto/); tm5 22:44 Pulse 78 MON; Resp 20 S; Pulse Ox 96% on 4 lpm NC; Pain 0/10; tm5 23:14 BP 146 / 84 (auto/); tm5 23:14 Pulse 78 MON; Pulse Ox 97% ; tm5 23:44 BP 149 / 90 (auto/); tm5 23:44 Pulse 90 MON; Resp 20 S; Pulse Ox 98% on 4 lpm NC; tm5 07/18 00:14 BP 118 / 76 (auto/); tm5 00:14 Pulse 80 MON; Resp 20 S; Pulse Ox 97% on 4 lpm NC; Pain 0/10; tm5 02:01 BP 118 / 74 (auto/); tm5 02:01 Pulse 70 MON; Resp 16 S; Pulse Ox 98% on 4 lpm NC; Pain 0/10; tm5 07/17 19:41 Body Mass Index 36.94 (127.01 kg, 185.42 cm) tm5 Vitals: 07/17 19:41 Log In Time N/A - ambulance arrival. tm5 ED Course: 19:31 Crystal Phoenix,JOHN is Primary Nurse. [facility] 19:31 Patient visited by Bekah Gan, Field Technical Specialist. jlm 19:31 Laila Alvarado is Private Physician. jl 19:31 Patient moved to 13 jl 19:34 Patient visited by Vane Sanford,JOHN. tm5 19:36 Triage Initiated tm5 19:45 Awaiting ED physician evaluation. tm5 19:45 The patient / caregiver is instructed regarding the plan of care and ED course. Pulse tm5 ox on. NIBP on. 19:45 pt arrived with indwelling catheter from Rehab facility per EMS. tm5 20:18 Patient visited by Vane Sanford,JOHN. tm5 20:18 Awaiting ED physician evaluation. tm5 20:32 Adam Dempsey DO is Attending Physician. mm11 20:32 Patient visited by Adam Dempsey DO. mm11 20:47 Patient visited by Adam Dempsey DO. mm11 21:08 Amylase Sent. tm5 21:08 Basic Metabolic Profile Sent. tm5 21:08 CBC with Diff Sent. tm5 21:08 Lipase Sent. tm5 21:08 Liver Profile Sent. tm5 21:09 Partial Thromboplastin Time Sent. tm5 21:09 Prothrombin Time Profile\E\INR Sent. tm5 21:09 Inserted saline lock: 18 gauge in left forearm and blood collected. The patient tm5 tolerated the procedure well. Labs drawn. (by ED staff). Sent per order to lab. 21:35 Newberry cath removed intact, balloon deflated, indwelling newberry catheter removed per tm5 orders to replace it with 3 way newberry for irrigation, approx 300 cc of bloody tinged urine emptied from this newberry, pt tolerated well. 21:36 Newberry cath inserted 18 Fr. Balloon inflated. To gravity drainage. Urine specimen tm5 collected. other 3 way newberry inserted for bladder irrigation returned bloody urine. Patient tolerated well. Bladder irrigated via Newberry normal saline returned bloddy pink tinged urine with shreds of blood clots noted Patient tolerated well. 22:15 Patient visited by Vane Sanford RN. tm5 22:48 Patient visited by Vane Sanford RN. tm5 22:57 Primary Nurse role handed off by Crystal Phoenix RN [id number] 23:42 [facility] Payment Agreement was scanned into [employer] and attached to record. [id number] 23:54 Patient visited by Adam Dempsey DO. mm11 07/18 00:[address]. tm5 00:55 Patient visited by Vane Sanford RN. tm5 01:01 Patient moved to OBSERVATION mm11 02:24 CT ABD & PELVIS: IV Contrast Only Returned. EDMS 03:18 Discontinued lock intact, bleeding controlled, pressure dressing applied, No tm5 redness/swelling at site. 03:18 No procedures done that require assistance. tm5 22:28 T-Sheet-- Draft Copy was scanned into [employer] and attached to record. klr Administered Medications: 07/17 23:50 Drug: Ondansetron 4 mg [ondansetron HCl 2 mg/mL intravenous solution (2 mL)] Route: tm5 IVP; Site: left forearm; 07/18 00:19 Follow up: Response: Nausea is decreased; No Adverse Reaction tm5 03:18 Drug: Cephalexin 500 mg [cephalexin 250 mg capsule (2 caps)] Route: PO; tm5 03:18 Follow up: Response: Pt left department before re-evaluation is appropriate tm5 Output: 07/17 21:36 Urine: 1300.00ml (Newberry); Total: 1300.00ml. tm5 22:48 Urine: 700.00ml (Newberry); Total: 2000.00ml. tm5 23:44 Urine: 1100.00ml (Newberry); Total: 3100.00ml. tm5 07/18 02:01 Urine: 800.00ml (Newberry); Total: 3900.00ml. tm5 Order Results: Lab Order: Amylase; SPEC'M 07/17/16 21:07 Test: AMYLASE; Value: 25; Range: 25-115; Units: U/L; Status: F Lab Order: Basic Metabolic Profile; SPEC'M 07/17/16 21:07 Test: GLUCOSE, FASTING; Value: 142; Range: 80-110; Abnormal: Above high normal; Units: MG/DL; Status: F Test: BLOOD UREA NITROGEN; Value: 8; Range: 7-18; Units: MG/DL; Status: F Test: CREATININE FOR GFR; Value: 1.00; Range: 0.70-1.30; Units: MG/DL; Status: F Test: GLOMERULAR FILTRATION RATE; Value: > 60.0; Range: >49; Status: F Test: SODIUM LEVEL; Value: 141; Range: 136-145; Units: MEQ/L; Status: F Test: POTASSIUM SERUM; Value: 3.3; Range: 3.5-5.1; Abnormal: Below low normal; Units: MEQ/L; Status: F Test: CHLORIDE LEVEL; Value: 101; Range: 98-107; Units: MEQ/L; Status: F Test: CARBON DIOXIDE LEVEL; Value: 31; Range: 21-32; Units: MEQ/L; Status: F Test: ANION GAP; Value: 9; Range: 8-16; Units: MEQ/L; Status: F Test: CALCIUM LEVEL; Value: 8.1; Range: 8.8-10.2; Abnormal: Below low normal; Units: MG/DL; Status: F Test Note: ; Units are mL/min/1.73 m2 Chronic Kidney Disease Staging per NKF: Stage I & II GFR >=60 Normal to Mildly Decreased Stage III GFR 30-59 Moderately Decreased Stage IV GFR 15-29 Severely Decreased Stage V GFR <15 Very Little GFR Left ESRD GFR <15 on COMMISSARY STEWARD Lab Order: CBC with Diff; SPEC'M 07/17/16 21:07 Test: WHITE BLOOD COUNT; Value: 10.4; Range: 4.0-10.0; Abnormal: Above high normal; Units: K/mm3; Status: F Test: RED BLOOD COUNT; Value: 4.35; Range: 4.30-6.10; Units: M/mm3; Status: F Test: HEMOGLOBIN; Value: 12.7; Range: 14.0-18.0; Abnormal: Below low normal; Units: g/dl; Status: F Test: HEMATOCRIT; Value: 38.4; Range: 42.0-52.0; Abnormal: Below low normal; Units: %; Status: F Test: MEAN CORPUSCULAR VOLUME; Value: 88.4; Range: 80.0-96.0; Units: fl; Status: F Test: MEAN CORPUSCULAR HEMOGLOBIN; Value: 29.2; Range: 27.0-33.0; Units: pg; Status: F Test: MEAN CORPUSCULAR HGB CONC; Value: 33.1; Range: 32.0-36.5; Units: g/dl; Status: F Test: RED CELL DISTRIBUTION WIDTH; Value: 13.5; Range: 11.5-14.5; Units: %; Status: F Test: PLATELET COUNT, AUTOMATED; Value: 203; Range: 150-450; Units: k/mm3; Status: F Test: NEUTROPHILS %; Value: 76.1; Range: 36.0-66.0; Abnormal: Above high normal; Units: %; Status: F Test: LYMPH %; Value: 11.1; Range: 24.0-44.0; Abnormal: Below low normal; Units: %; Status: F Test: MONO %; Value: 5.9; Range: 0.0-5.0; Abnormal: Above high normal; Units: %; Status: F Test: EOS %; Value: 5.1; Range: 0.0-3.0; Abnormal: Above high normal; Units: %; Status: F Test: BASO %; Value: 1.0; Range: 0.0-1.0; Units: %; Status: F Test: LARGE UNSTAINED CELL %; Value: 0.9; Range: 0.0-4.0; Units: %; Status: F Test: NEUTROPHILS #; Value: 7.9; Range: 1.8-7.7; Abnormal: Above high normal; Units: K/mm3; Status: F Test: LYMPH #; Value: 1.3; Range: 1.5-4.5; Abnormal: Below low normal; Units: K/mm3; Status: F Test: MONO #; Value: 0.6; Range: 0.0-0.8; Units: K/mm3; Status: F Test: EOS #; Value: 0.5; Range: 0.0-0.50; Units: K/mm3; Status: F Test: BASO #; Value: 0.1; Range: 0.0-0.2; Units: K/mm3; Status: F Test: LARGE UNSTAINED CELL #; Value: 0.1; Range: 0.0-0.4; Units: K/mm3; Status: F Lab Order: Lipase; SPEC'M 07/17/16 21:07 Test: LIPASE; Value: 112; Range: 73-393; Units: U/L; Status: F Lab Order: Liver Profile; SPEC'M 07/17/16 21:07 Test: AST/SGOT; Value: 11; Range: 15-37; Abnormal: Below low normal; Units: U/L; Status: F Test: ALT/SGPT; Value: 19; Range: 12-78; Units: U/L; Status: F Test: ALKALINE PHOSPHATASE; Value: 94; Range: 45-117; Units: U/L; Status: F Test: BILIRUBIN,TOTAL; Value: 0.3; Range: 0.2-1.0; Units: MG/DL; Status: F Test: BILIRUBIN,DIRECT; Value: < 0.1; Range: 0.0-0.2; Units: MG/DL; Status: F Test: TOTAL PROTEIN; Value: 6.0; Range: 6.4-8.2; Abnormal: Below low normal; Units: GM/DL; Status: F Test: ALBUMIN; Value: 2.9; Range: 3.2-5.2; Abnormal: Below low normal; Units: GM/DL; Status: F Test: ALBUMIN/GLOBULIN RATIO; Value: 0.94; Range: 1.00-1.93; Abnormal: Below low normal; Status: F Lab Order: Partial Thromboplastin Time; [facility] 07/17/16 21:07 Test: PARTIAL THROMBOPLASTIN TIME; Value: 28.1; Range: 26.6-37.1; Units: SECONDS; Status: F Lab Order: Prothrombin Time Profile\E\INR; [facility] 07/17/16 21:07 Test: PROTHROMBIN TIME; Value: 12.9; Range: 12.3-14.5; Units: SECONDS; Status: F Test: INR; Value: 0.96; Status: F Test Note: ; THERAPUTIC HUMAN INR VALUES INDICATIONS NORMAL RANGES PROPHYLAXIS/TREATMENT OF: VENOUS THROMBOSIS 2.0-3.0 PULMONARY EMBOLISM 2.0-3.0 PREVENTION OF SYSTEMIC EMBOLISM FROM: TISSUE HEART VALVES 2.0-3.0 ACUTE MYOCARDIAL INFARCTION 2.0-3.0 VALVULAR HEART DISEASE 2.0-3.0 ATRIAL FIBRILLATION 2.0-3.0 MECHANICAL VALVES(HIGH RISK) 2.5-3.5 RECURRENT MYOCARDIAL INFARCTION 2.5-3.5 Lab Order: Urinalysis; [facility] 07/17/16 21:07 Test: APPEARANCE, URINE; Value: CLOUDY; Range: CLEAR; Abnormal: Above high normal; Status: F Test: COLOR, URINE; Value: RED; Range: YELLOW; Abnormal: Above high normal; Status: F Test: PH,URINE; Value: 6.0; Range: 5.0-9.0; Units: UNITS; Status: F Test: SPECIFIC GRAVITY URINE AUTO; Value: 1.006; Range: 1.002-1.035; Status: F Test: PROTEIN, URINE AUTO; Value: 1+; Range: NEGATIVE; Abnormal: Above high normal; Units: mg/dL; Status: F Test: GLUCOSE, URINE (UA) AUTO; Value: NEGATIVE; Range: NEGATIVE; Units: mg/dL; Status: F Test: KETONE, URINE AUTO; Value: NEGATIVE; Range: NEGATIVE; Units: mg/dL; Status: F Test: UROBILINOGEN, URINE AUTO; Value: 0.2; Range: 0.0-2.0; Units: mg/dL; Status: F Test: BILIRUBIN, URINE AUTO; Value: NEGATIVE; Range: NEGATIVE; Status: F Test: NITRITE, URINE AUTO; Value: NEGATIVE; Range: NEGATIVE; Status: F Test: LEUKOCYTE ESTERASE, URINE AUTO; Value: 3+; Range: NEGATIVE; Abnormal: Above high normal; Status: F Test: BLOOD, URINE BLOOD; Value: 3+; Range: NEGATIVE; Abnormal: Above high normal; Status: F Test: WBC, URINE AUTO; Value: TNTC; Range: 0-3; Abnormal: Above high normal; Units: /HPF; Status: F Test: RBC, URINE AUTO; Value: TNTC; Range: 0-3; Abnormal: Above high normal; Units: /HPF; Status: F Test: BACTERIA, URINE AUTO; Value: 1+; Range: NEGATIVE; Abnormal: Above high normal; Status: F Test: SQUAMOUS EPITHELIAL CELL UR AU; Value: 0; Range: 0-6; Units: /HPF; Status: F Test: MUCUS, URINE; Value: SMALL; Range: NEGATIVE; Status: F Test: HYALINE CAST, URINE AUTO; Value: 0; Range: 0-1; Units: /LPF; Status: F Lab Order: Urine Culture; SPEC'M 07/17/16 21:07 Test: URINE CULTURE; Value: <EXTERNAL COMMENT eCWMed> FULL REPORT IN LAB NOTES (eCW and Medent).; Status: F Test: URINE CULTURE; Value: ORGANISM 1: STAPHYLOCOCCUS EPIDERMIDIS; Status: F Test: URINE CULTURE; Value: STAPHYLOCOCCUS EPIDERMIDIS; Status: F Test: URINE CULTURE; Value: COLONY COUNT CFU/ml >100,000; Status: F Test: URINE CULTURE; Value: GRAM POS SENSI - VITEK 67; Status: F Test: URINE CULTURE; Value: Method: VIT2; Status: F Test: URINE CULTURE; Value: TETRACYCLINE 2 S; Status: F Test: URINE CULTURE; Value: PENICILLIN G >=0.5 R; Status: F Test: URINE CULTURE; Value: TRIMETHOPRIM/SULFAMETHOXAZOLE <=10 S; Status: F Test: URINE CULTURE; Value: ERYTHROMYCIN >=8 R; Status: F Test: URINE CULTURE; Value: GENTAMICIN <=0.5 S; Status: F Test: URINE CULTURE; Value: CLINDAMYCIN >=8 R; Status: F Test: URINE CULTURE; Value: NITROFURANTOIN <=16 S; Status: F Test: URINE CULTURE; Value: OXACILLIN >=4 R; Status: F Test: URINE CULTURE; Value: VANCOMYCIN 1 S; Status: F Test: URINE CULTURE; Value: LINEZOLID (ZYVOX) 1 S; Status: F Radiology Order: CT ABD & PELVIS: IV Contrast Only Test: CT ABD & PELVIS: IV Contrast Only REASON FOR EXAMINATION: abd pain, gross hematuria; ; CLINICAL HISTORY: Abdominal pain.; TECHNIQUE: Multiple axial, sagittal and coronal CT images were obtained through the abdomen and pelvi; s after administration of intravenous contrast material.; COMMENTS: Compared to 02/14/16 study.; The liver is of uniform attenuation without mass or defect. There is no intra or extrahepatic biliary; ductal dilatation. The spleen is normal. The gallbladder is within normal limits. The pancreas is of; normal contour and attenuation characteristics. There is no evidence of adrenal mass.; Both kidneys demonstrate prompt and equal nephrograms. The kidneys are normal in size, shape and conf; iguration. There is no evidence of renal or ureteral mass. No renal or ureteral calculi are identifie; d. There is mild bilateral hydroureteronephrosis noted. Bilateral extrarenal pelvii are noted.; No evidence for appendicitis. There is no bowel wall thickening. No evidence for small or large sugar; l obstruction. There is no evidence of abdominal ascites or lymphadenopathy.; Newberry catheter is in place. Air is present within urinary bladder. Diffuse bladder wall thickening; seen compatible with cystitis. There is no evidence of intrinsic or extrinsic bladder mass. There is; no pelvic ascites or lymphadenopathy.; Images of the lung bases show no evidence of pleural or parenchymal mass. There are no pleural effusi; ons.; The bony structures are free of lytic or blastic lesions. Multilevel degenerative changes are seen in; volving the thoracolumbar spine. Moderate compression deformities of T12 and L3.; Scattered calcifications are seen involving the aorta and major branches compatible with atherosclero; sis.; IMPRESSION:; Diffuse bladder wall thickening seen compatible with cystitis.; Mild bilateral hydroureteronephrosis.; Thank you for your kind referral of this patient.; ; Outcome: 02:52 Discharge ordered by Provider. mm11 03:18 Discharge Assessment: Patient awake, alert and oriented x 3. No cognitive and/or tm5 functional deficits noted. Patient verbalized understanding of disposition instructions. patient administered narcotics - no. The following High Risk Discharge criteria are identified: None. Discharged to home via wheelchair, with family. Condition: good Condition: stable Condition: improved. Discharge instructions given to patient, Instructed on discharge instructions, follow up and referral plans. medication usage, Demonstrated understanding of instructions, medications, Pt was receptive of discharge instructions/ teaching. Prescriptions given X 1. CT Study completed. Property :Personal belongings accompany Pt. 03:20 Patient left the ED. tm5 Signatures: Dispatcher [employer] EDAdam Quintanilla, DO mm11 Bekah Gan, Field Technical Specialist Unit Crystal Toro,RN RN [id number] Marissa Alvarez, Reg Reg [id number] Radha Levin Tonya,RN RN tm5 Chart Complete NIMISHA
--- NOTE | 2016-07-20 04:22 | EDDOCDS ---
Physician Documentation [facility] Name: [place] Alicea Age: 61 yrs Sex: Male : 1955 Arrival Date: 07/17/2016 Time: 19:30 Bed OBSERVATION Private MD: Laila Alvarado Disposition: 07/18/16 02:52 Discharged to Home/Self Care. Impression: Acute cystitis with hematuria. - Condition is Stable. - Discharge Instructions: Hematuria, Adult, Urinary Tract Infection, Urinary Tract Infection, Urpo-th-Qmop. - Prescriptions for Keflex 500 mg Oral Capsule - take 1 capsule by ORAL route every 6 hours for 10 days; 40 capsule. - Medication Reconciliation, Local Pharmacy Hours form. - Follow up: Private Physician; When: Call to arrange an appointment; Reason: Continuance of care. - Problem is an acute exacerbation. - Symptoms have improved. - Notes: FOLLOW UP WITH YOUR PRIMARY UROLOGIST IN [place]. Historical: - Allergies: Cardizem; Cipro PO; SULFA (SULFONAMIDES); zonisamide; - Home Meds: 1. Oxygen continuous \T\ 4L NC 2. albuterol sulfate 90 mcg/actuation Inhl HFAA 1 puff every 6 hours 3. aspirin 325 mg oral tab once daily 4. Altace 1.25 mg Oral cap 1 cap once daily 5. Colace 100 mg oral cap 1 cap once daily 6. finasteride 5 mg oral tab 1 tab once daily 7. Plavix 75 mg Oral tab 1 tab once daily 8. lamotrigine 300 mg Oral tr24 1 tab twice a day 9. Flomax 0.4 mg Oral cp24 2 caps once daily 10. Vimpat 200 mg oral tab 2 tab 2 times per day 11. Reglan 5 mg Oral tab tid 12. loratadine 10 mg Oral tab 1 tab once daily 13. omeprazole 40 mg Oral cpDR 1 cap once daily 14. rosuvastatin 20 mg oral tab 1 tab once daily 15. Zyrtec 10 mg Oral tab 1 tab once daily - PMHx: BPH; COPD; CVA; Hypercholesterolemia; Myocardial infarction; Seizure Disorder; Sleep Apnea w/ CPAP; UTI; Pnem[place]; - PSHx: none; - Social history: Smoking status: Patient states former smoker of tobacco. 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 - Family history: Not pertinent. - : The pt / caregiver states he / she is on anticoagulants: Plavix. Home medication list is obtained from family members. - Exposure Risk Screening:: None identified. Vital Signs: 07/17 19:41 BP 121 / 82; Pulse 87; Resp 16; Temp 97.1(O); Pulse Ox 97% on 4 lpm NC; Weight 127.01 tm5 kg / 280.01 lbs; Height 6 ft. 1 in. (185.42 cm); Pain 0/10; 20:44 BP 126 / 87 (auto/); tm5 20:44 Pulse 90 MON; Pulse Ox 96% ; tm5 21:14 BP 135 / 81 (auto/); tm5 21:14 Pulse 90 MON; Pulse Ox 97% ; tm5 21:44 BP 118 / 63 (auto/); tm5 21:44 Pulse 86 MON; Resp 20 S; Pulse Ox 98% on 4 lpm NC; Pain 0/10; tm5 22:14 BP 110 / 72 (auto/); tm5 22:14 Pulse 82 MON; Pulse Ox 98% ; tm5 22:44 BP 119 / 75 (auto/); tm5 22:44 Pulse 78 MON; Resp 20 S; Pulse Ox 96% on 4 lpm NC; Pain 0/10; tm5 23:14 BP 146 / 84 (auto/); tm5 23:14 Pulse 78 MON; Pulse Ox 97% ; tm5 23:44 BP 149 / 90 (auto/); tm5 23:44 Pulse 90 MON; Resp 20 S; Pulse Ox 98% on 4 lpm NC; tm5 07/18 00:14 BP 118 / 76 (auto/); tm5 00:14 Pulse 80 MON; Resp 20 S; Pulse Ox 97% on 4 lpm NC; Pain 0/10; tm5 02:01 BP 118 / 74 (auto/); tm5 02:01 Pulse 70 MON; Resp 16 S; Pulse Ox 98% on 4 lpm NC; Pain 0/10; tm5 07/17 19:41 Body Mass Index 36.94 (127.01 kg, 185.42 cm) tm5 MDM: 07/17 20:48 IV Saline Lock ordered. mm11 20:48 Undress patient appropriately for examination ordered. mm11 20:48 Patel - [address] ordered. mm11 20:48 Bladder Irrigation ordered. mm11 20:49 Amylase Ordered. EDMS 20:49 Basic Metabolic Profile Ordered. EDMS 20:49 CBC with Diff Ordered. EDMS 20:49 Lipase Ordered. EDMS 20:49 Liver Profile Ordered. EDMS 20:49 Partial Thromboplastin Time Ordered. EDMS 20:49 Prothrombin Time Profile\E\INR Ordered. EDMS 20:49 Urinalysis Ordered. EDMS 20:50 Urine Culture Ordered. EDMS 20:50 NOTHING BY MOUTH+DIET ordered. EDMS 22:00 Basic Metabolic Profile Reviewed. mm11 22:00 CBC with Diff Reviewed. mm11 22:00 Liver Profile Reviewed. mm11 22:00 Urinalysis Reviewed. mm11 22:00 Amylase Reviewed. mm11 22:00 Lipase Reviewed. mm11 22:00 Partial Thromboplastin Time Reviewed. mm11 22:00 Prothrombin Time Profile\E\INR Reviewed. mm11 23:37 Financial registration complete. [email or web address] 23:42 [facility] Payment Agreement was scanned into [employer] and attached to record. ks16 23:49 Ondansetron 4 mg IVP once ordered. mm11 23:50 CT ABD & PELVIS: IV Contrast Only Ordered. EDNY 07/18 02:38 CT ABD & PELVIS: IV Contrast Only Reviewed. mm11 02:51 Cephalexin 500 mg PO once ordered. 11 :28 T-Sheet-- Draft Copy was scanned into [employer] and attached to record. klr Administered Medications: 07/17 23:50 Drug: Ondansetron 4 mg [ondansetron HCl 2 mg/mL intravenous solution (2 mL)] Route: tm5 IVP; Site: left forearm; 07/18 00:19 Follow up: Response: Nausea is decreased; No Adverse Reaction tm5 03:18 Drug: Cephalexin 500 mg [cephalexin 250 mg capsule (2 caps)] Route: PO; tm5 03:18 Follow up: Response: Pt left department before re-evaluation is appropriate tm5 Signatures: Dispatcher [employer] EDMS Adam Dempsey DO DO mm11 Marissa Alvarez, Reg Reg [email or web address] Radha Levin Tonya, RN RN tm5 The chart was reviewed and I authenticate all verbal orders and agree with the evaluation and treatment provided.Attachments: 07/17 23:42 [facility] Payment Agreement [facility] 07/18 22:28 T-Sheet-- Draft Copy klr Chart Complete MTDD
== END 2016-07-18 03:20 | disposition home or self-care (01) ==
LOC: M ED 19:30
DX: R31.0 Gross hematuria (principal); J44.9 Chronic obstructive pulmonary disease, unspecified; N40.0 Benign prostatic hyperplasia without lower urinary tract symptoms; I25.2 Old myocardial infarction; E78.00 Pure hypercholesterolemia, unspecified; G40.909 Epilepsy, unspecified, not intractable, without status epilepticus; G47.30 Sleep apnea, unspecified; Z96.0 Presence of urogenital implants; Z87.09 Personal history of other diseases of the respiratory system; Z79.899 Other long term (current) drug therapy; Z79.82 Long term (current) use of aspirin; Z87.440 Personal history of urinary (tract) infections; Z86.73 Personal history of transient ischemic attack (TIA), and cerebral infarction without residual deficits; Z79.01 Long term (current) use of anticoagulants; Z99.81 Dependence on supplemental oxygen; Z88.1 Allergy status to other antibiotic agents; Z88.2 Allergy status to sulfonamides; Z88.8 Allergy status to other drugs, medicaments and biological substances; Z87.891 Personal history of nicotine dependence
CPT/HCPCS: 36415; 51700; 74177; 80048; 80076; 81001; 82150; 83690; 85025; 85610; 85730; 87088; 87186; 96374; 99285; J2405; Q9967

== ENCOUNTER 2016-08-17 20:43 | Emergency (ER) | payer MEDICARE, OTHER ==
[~2016-08-17] VITALS: Ht 185.4 cm; Wt 127.5 kg
[2016-08-17] MEDS ORDERED: MECL25CH PO (21:19)
[2016-08-17] MEDS ORDERED: BIMA01SOL OU (21:19)
[2016-08-17] MEDS ORDERED: LIPI80TA PO (21:19)
[2016-08-17] MEDS ORDERED: PROS5TAB PO (21:19)
[2016-08-17] MEDS ORDERED: NS 1,000 ML IV SCH (22:17)
[2016-08-17 22:36] LABS: BASO % 0.4 % (0.0-1.0); EOS # 0.4 K/mm3 (0.0-0.50); LARGE UNSTAINED CELL # 0.1 K/mm3 (0.0-0.4); LARGE UNSTAINED CELL % 1.4 % (0.0-4.0); LYMPH % 11.2 % (24.0-44.0); MEAN CORPUSCULAR HEMOGLOBIN 29.8 pg (27.0-33.0); MEAN CORPUSCULAR HGB CONC 33.7 g/dl (32.0-36.5); MEAN CORPUSCULAR VOLUME 88.3 fl (80.0-96.0); MONO # 0.5 K/mm3 (0.0-0.8); MONO % 5.9 % (0.0-5.0); NEUTROPHILS # 6.5 K/mm3 (1.8-7.7); NEUTROPHILS % 75.9 % (36.0-66.0); PLATELET COUNT, AUTOMATED 185 k/mm3 (150-450); RED CELL DISTRIBUTION WIDTH 12.7 % (11.5-14.5); WHITE BLOOD COUNT 8.6 K/mm3 (4.0-10.0)
--- NOTE | 2016-08-17 23:00 | REPUSA ---
CT of the head Clinical history: altered mental status. Comparison: 06/13/2016. Protocol: Multiple axial CT images obtained with 5 mm slice thickness were obtained through the head without administration of contrast. Findings: The ventricles and sulci are symmetric but prominent in size bilaterally, other than the ch ronic encephalomalacia in the left frontal lobe. There are periventricular areas of low attenuation t hroughout the deep white matter. There is no evidence of acute hemorrhage or infarct. There is no mid line shift, mass effect, or extra-axial fluid collection. The osseous structures are unremarkable. Th e visualized paranasal sinuses and mastoid air cells are clear. Impression: No acute hemorrhage or infarct. Chronic encephalomalacia the left frontal lobe is stable. Findings are otherwise consistent with stable mild age-related atrophy and chronic small vessel isch emic disease. No change since the prior study.
[2016-08-17 23:03] LABS: ALBUMIN 3.3 GM/DL (3.2-5.2); ALKALINE PHOSPHATASE 138 U/L (45-117); ALT/SGPT 16 U/L (12-78); ANION GAP 6 MEQ/L (8-16); AST/SGOT 6 U/L (15-37); BILIRUBIN,DIRECT < 0.1 MG/DL (0.0-0.2); BILIRUBIN,TOTAL 0.3 MG/DL (0.2-1.0); BLOOD UREA NITROGEN 18 MG/DL (7-18); CALCIUM LEVEL 8.3 MG/DL (8.8-10.2); CARBON DIOXIDE LEVEL 31 MEQ/L (21-32); CHLORIDE LEVEL 102 MEQ/L (98-107); GLOMERULAR FILTRATION RATE > 60.0 (>49); GLUCOSE, FASTING 163 MG/DL (80-110); POTASSIUM SERUM 3.8 MEQ/L (3.5-5.1); SODIUM LEVEL 139 MEQ/L (136-145); TOTAL PROTEIN 6.3 GM/DL (6.4-8.2)
[2016-08-17 23:11] LABS: ABG BASE EXCESS 3.2 (-2.0-2.0); ABG HCO3 28.7 MEQ/L (22.0-26.0); ABG PARTIAL PRESSURE CO2 46.6 mmHg (35.0-45.0); ABG PARTIAL PRESSURE O2 98.2 mmHg (75.0-100.0); ABG STANDARD HCO3 27.3 MEQ/L (22.0-26.0); ABG TOTAL CO2 30.1 MEQ/L (23.0-31.0); ABG pH (ARTERIAL) 7.407 UNITS (7.350-7.450)
[2016-08-18] MEDS ORDERED: NITROFURANTOIN (MACROBID) 100 MG CAP PO ONE (01:15)
[2016-08-18] MEDS ORDERED: MACR100C3 PO ×2 (01:16→01:29)
[2016-08-18 01:19] VITALS: BP 142/92
--- NOTE | 2016-08-18 09:26 | REP ---
PORTABLE CHEST: AP portable view of the chest is performed and compared to a prior study of 04/22/2016 and 06/13/2016. There is mild cardiomegaly. The mediastinal silhouette is unchanged. There is pulmonary venous hypertension. Increased interstitial opacities are seen diffusely bilaterally, more so in the lung bases. These are stable. IMPRESSION: Mild cardiomegaly and pulmonary venous hypertension. Chronic interstitial opacities without evidence of acute infiltrate. Signed by Bryon Maldonado MD 08/18/2016 05:17 P
--- NOTE | 2016-08-18 10:49 | ECGEPIP ---
Stationary ECG Study [facility] - ED Test Date: 2016-08-17 Pat Name: LORRAINE CONTRERAS Department: Room: - Gender: M Solar Photovoltaic Electrician: LiveB: 1955 Requested By: KIARA Blanchard Order Number: [id number] Reading MD: Hemanth Teixeira Measurements Intervals [place] Rate: 70 P: 45 MI: 204 QRS: 17 QRSD: 69 T: 53 QT: 351 QTc: 380 Interpretive Statements SINUS RHYTHM LOW QRS VOLTAGE IN PRECORDIAL AND LIMB LEADS ANTEROSEPTAL INFARCT, OLD INFERIOR INFARCT, OLD SIMILAR TO 06/13/16 Electronically Signed On 08-18-2016 10:48:36 EST by Hemanth Teixeira
[2016-08-19] MEDS ORDERED: ASPI325T28 PO (16:27)
[2016-08-19] MEDS ORDERED: OXY (16:47)
[2016-08-19] MEDS ORDERED: BACT800T5 PO (20:58)
== END 2016-08-18 01:35 | disposition home or self-care (01) ==
LOC: EDBD 20:43 → M ED 23:19
DX: N39.0 Urinary tract infection, site not specified (principal); N40.0 Benign prostatic hyperplasia without lower urinary tract symptoms; Z86.73 Personal history of transient ischemic attack (TIA), and cerebral infarction without residual deficits; Z79.899 Other long term (current) drug therapy; Z79.02 Long term (current) use of antithrombotics/antiplatelets; Z79.82 Long term (current) use of aspirin

== ENCOUNTER 2016-08-19 16:02 | Emergency (ER) | payer MEDICARE, OTHER ==
[~2016-08-19] VITALS: Ht 185.4 cm; Wt 127.0 kg
[~2016-08-19 16:02] MED LIST changes: +BIMA01SOL OU; +LIPI80TA PO; +MACR100C3 PO; +MECL25CH PO; +PROS5TAB PO
[2016-08-19 16:17] VITALS: BP 114/80
[2016-08-19] MEDS ORDERED: ASPI325T28 PO (16:27)
[2016-08-19] MEDS ORDERED: OXY (16:47)
[2016-08-19] MEDS ORDERED: LIDOCAINE 2% JELLY 30 ML TOP ONE (18:30)
[2016-08-19] MEDS ORDERED: PERCOCET 5MG/325MG TAB PO ONE (20:30)
[2016-08-19] MEDS ORDERED: BACT800T5 PO (20:58)
--- NOTE | 2016-08-20 07:31 | CR ---
DATE OF CONSULTATION: 08/19/2016 REASON FOR CONSULTATION: Difficulty removing a Patel catheter, balloon not deflating. CHIEF COMPLAINT: This is a 61-year-old male patient that actively came to the emergency department (ED) due to the reason that there was difficulty exchanging the Patel catheter. He has a noncontractile bladder and for this reason he has a permanent Patel catheter that is exchanged every four weeks. This time, the Patel catheter could not come out and for this reason they actively attempted multiple times in the emergency department to actively take it out. They cut the Patel catheter. The balloon did not deflate. The balloon was actively positioned in the perineum in the urethral bulbaris when we actively saw the patient and examined the patient. For this reason, the patient had a balloon of about 10 mL inflated in the bulbar urethra and the balloon could not be deflated and the Patel catheter could not be taken out. For this purpose , on examination we found the patient who had urinary retention with a bladder full for about 500 mL, palpable up to the level of theumbilicus. Per patient, he had a Patel catheter in place through the urethra with a hypospadia meatus and a very dilated meatus due to rodent exterminator Patel catheter placement. We palpated the penile urethra alongside all the way down to the perineum and below the scrotum. We could palpate the balloon at that level. At that moment in time, we decided to grab a spinal needle 22 and percutaneously popped the balloon and the Patel came out very easily. At that moment in time, we decided to place a 16-Turkish Patel catheter 2-way with a 10 mL balloon. After prepping and draping the area of concern, which included the entire genitalia, we actively placed lidocaine gel through the urethra and passed a 16-Turkish Patel catheter easily going into the bladder and draining the bladder with a clear yellow urine. At that moment in time, we inflated the balloon to 10 mL and then placed a Patel bag and then a Patel strap to the leg. PLAN: The patient will need oral antibiotics. We will recommend quinolone or sulfa to take home for at least 10 days due to a traumatic event of Patel exchange. He should follow at [facility] to have Patel exchanges. There were no complications during the procedure. NIMISHA
== END 2016-08-19 21:29 | disposition home or self-care (01) ==
LOC: EDBD 16:02 → M ED 17:35
DX: T83.098A Other mechanical complication of other urinary catheter, initial encounter (principal); N40.0 Benign prostatic hyperplasia without lower urinary tract symptoms; Z87.891 Personal history of nicotine dependence; Z79.82 Long term (current) use of aspirin; Z79.899 Other long term (current) drug therapy; Z88.1 Allergy status to other antibiotic agents; Z88.0 Allergy status to penicillin; Z88.8 Allergy status to other drugs, medicaments and biological substances

== ENCOUNTER 2016-08-21 07:18 | Emergency (ER) | payer MEDICARE, OTHER ==
[~2016-08-21] VITALS: Ht 182.9 cm; Wt 124.7 kg
[~2016-08-21 07:18] MED LIST changes: +ASPI325T28 PO; +BACT800T5 PO; +OXY
[2016-08-21] MEDS ORDERED: TAMSULOSIN (07:40)
[2016-08-21] MEDS ORDERED: LIDOCAINE 2% JELLY 30 ML As Ordered ONE (08:05)
[2016-08-21 08:27] VITALS: BP 125/75
== END 2016-08-21 08:35 | disposition home or self-care (01) ==
LOC: M ED 08:02
DX: N99.518 Other cystostomy complication (principal); N40.0 Benign prostatic hyperplasia without lower urinary tract symptoms; F17.210 Nicotine dependence, cigarettes, uncomplicated; Z88.0 Allergy status to penicillin; Z88.1 Allergy status to other antibiotic agents; Z88.8 Allergy status to other drugs, medicaments and biological substances; Z79.899 Other long term (current) drug therapy; Z79.82 Long term (current) use of aspirin; R56.9 Unspecified convulsions; I10 Essential (primary) hypertension; J45.909 Unspecified asthma, uncomplicated; G47.30 Sleep apnea, unspecified; F32.9 Major depressive disorder, single episode, unspecified; Z99.81 Dependence on supplemental oxygen

== ENCOUNTER 2016-10-07 18:28 | Emergency (ER) | payer MEDICARE, OTHER ==
[~2016-10-07] VITALS: Ht 185.4 cm; Wt 122.9 kg
[~2016-10-07 18:28] MED LIST changes: -COLA100C PO; +COLA100C3 PO; +NYST100024 TOP; +TAMSULOSIN
[2016-10-07] MEDS ORDERED: CRES20TA PO (18:49)
[2016-10-07] MEDS ORDERED: PRED10TA PO (18:49)
[2016-10-07] MEDS ORDERED: AZIT500T2 PO (18:49)
[2016-10-07] MEDS ORDERED: OMEP40CA2 PO (18:49)
[2016-10-07] MEDS ORDERED: DOXY75CA3 PO (18:49)
[2016-10-07] MEDS ORDERED: SENO8.6T10 PO (18:49)
[2016-10-07] MEDS ORDERED: ASPI325T28 PO (18:49)
[2016-10-07] MEDS ORDERED: NEXI40CA PO (18:49)
[2016-10-07] MEDS ORDERED: CETI1SYP16 PO (18:49)
[2016-10-07 20:55] LABS: MEAN CORPUSCULAR HEMOGLOBIN 29.4 pg (27.0-33.0); MEAN CORPUSCULAR HGB CONC 32.9 g/dl (32.0-36.5); MEAN CORPUSCULAR VOLUME 89.1 fl (80.0-96.0); RED CELL DISTRIBUTION WIDTH 12.6 % (11.5-14.5); WHITE BLOOD COUNT 13.6 K/mm3 (4.0-10.0)
[2016-10-07 21:06] LABS: INR 0.99
[2016-10-07 21:16] LABS: ANION GAP 9 MEQ/L (8-16); BLOOD UREA NITROGEN 14 MG/DL (7-18); CARBON DIOXIDE LEVEL 30 MEQ/L (21-32); CHLORIDE LEVEL 99 MEQ/L (98-107); CREATININE FOR GFR 0.75 MG/DL (0.70-1.30); GLOMERULAR FILTRATION RATE > 60.0 (>49); GLUCOSE, FASTING 129 MG/DL (80-110); SODIUM LEVEL 138 MEQ/L (136-145)
[2016-10-07] MEDS ORDERED: NITROFURANTOIN (MACROBID) 100 MG CAP PO ONE (21:30)
[2016-10-07] MEDS ORDERED: MACR100C3 PO (21:32)
[2016-10-07 21:57] VITALS: BP 130/81
== END 2016-10-07 21:59 | disposition home or self-care (01) ==
LOC: M ED 19:32
DX: R33.9 Retention of urine, unspecified (principal); N30.90 Cystitis, unspecified without hematuria; I10 Essential (primary) hypertension; Z79.01 Long term (current) use of anticoagulants; Z79.899 Other long term (current) drug therapy; Z88.0 Allergy status to penicillin; Z88.8 Allergy status to other drugs, medicaments and biological substances; Z96.0 Presence of urogenital implants; Z86.73 Personal history of transient ischemic attack (TIA), and cerebral infarction without residual deficits

== ENCOUNTER 2016-10-17 13:07 | Emergency (ER) | payer MEDICARE, OTHER ==
[~2016-10-17] VITALS: Ht 182.9 cm; Wt 111.1 kg
[~2016-10-17 13:07] MED LIST changes: +AZIT500T2 PO; +CETI1SYP16 PO; +OMEP40CA2 PO; +PRED10TA PO; +SENO8.6T10 PO
[2016-10-17] MEDS ORDERED: ATOR1TAB18 PO (13:31)
[2016-10-17 16:17] VITALS: BP 107/78
== END 2016-10-17 16:18 | disposition home or self-care (01) ==
LOC: M ED 14:29
DX: T83.098A Other mechanical complication of other urinary catheter, initial encounter (principal); I10 Essential (primary) hypertension; J45.909 Unspecified asthma, uncomplicated; N40.0 Benign prostatic hyperplasia without lower urinary tract symptoms; F32.9 Major depressive disorder, single episode, unspecified; Z79.82 Long term (current) use of aspirin; Z79.899 Other long term (current) drug therapy; Z88.1 Allergy status to other antibiotic agents; Z88.0 Allergy status to penicillin; Z88.8 Allergy status to other drugs, medicaments and biological substances

== ENCOUNTER → 2016-11-23 | Outpatient (REF) | payer MEDICARE, OTHER ==
[~2016-11-23] MED LIST changes: +ATOR1TAB18 PO
== END ==
LOC: M SMT 13:02
PROVIDERS: ATTEND Nurse Practitioner Women's Health
DX: R82.90 Unspecified abnormal findings in urine (principal)

== ENCOUNTER 2016-12-27 10:05 | Emergency (ER) | payer MEDICARE, OTHER ==
[~2016-12-27] VITALS: Ht 182.9 cm; Wt 125.0 kg
[~2016-12-27 10:05] MED LIST changes: +ASPI325T24 PO; -ASPI32ECTA PO; -ATOR1TAB18 PO; +ATOR80TA59 PO; +AZIT-12 PO; -AZIT250T3 PO; -COLA100C3 PO; +COLA100C5 PO; -MACR100C3 PO; +MACR100C43 PO; +MECL1CHW2 PO; -MECL25CH PO; -NYST100024 TOP; +NYST1POW9 TOP; +PLAV1TAB2 PO; -PLAV75TA38 PO; -PRED10TA PO
[2016-12-27] MEDS ORDERED: LOTR1CRE TOP (10:56)
[2016-12-27 11:08] VITALS: BP 115/74
== END 2016-12-27 11:11 | disposition home or self-care (01) ==
LOC: M ED 10:05
DX: B35.4 Tinea corporis (principal); T83.098A Other mechanical complication of other urinary catheter, initial encounter; Y92.9 Unspecified place or not applicable; Y93.9 Activity, unspecified; J44.9 Chronic obstructive pulmonary disease, unspecified; I51.9 Heart disease, unspecified; Z87.891 Personal history of nicotine dependence; Z79.82 Long term (current) use of aspirin; Z79.899 Other long term (current) drug therapy; Z88.1 Allergy status to other antibiotic agents; Z88.0 Allergy status to penicillin; Z88.8 Allergy status to other drugs, medicaments and biological substances

== ENCOUNTER → 2017-01-12 | Outpatient (REF) | payer MEDICARE, OTHER ==
[~2017-01-12] MED LIST changes: +LOTR1CRE TOP
[2017-01-13 13:57] LABS: MICROSCOPIC INDICATED? MAN YES (NO)
[2017-01-13 13:58] LABS: BACTERIA, URINE MOD AMOUNT; HYALINE CAST, URINE NONE SEEN /lpf (0-1); MICROSCOPIC EXAM PERFORMED; RBC, URINE TNTC /hpf (0-3); SQUAMOUS EPITHELIAL CELL URINE NONE SEEN /hpf (SMALL AMT); WBC, URINE TNTC /hpf (0-3)
== END ==
LOC: M SMT 12:42
PROVIDERS: ATTEND Nurse Practitioner Women's Health
DX: R31.0 Gross hematuria (principal)

== ENCOUNTER → 2017-03-15 | Outpatient (REF) | payer MEDICARE, OTHER | LOC: M SMT 13:30 | PROVIDERS: ATTEND Urology | DX: R33.9 Retention of urine, unspecified (principal) ==

== ENCOUNTER → 2017-06-03 | Outpatient (REF) | payer MEDICARE, OTHER | LOC: M SMT 13:00 | PROVIDERS: ATTEND Urology | DX: R33.9 Retention of urine, unspecified (principal) ==

== ENCOUNTER → 2018-04-12 | Outpatient (REF) | payer MEDICARE, OTHER ==
[2018-04-12 17:32] LABS: BASO # 0.1 10^3/uL (0.0-0.2); BASO % 0.5 % (0.0-1.0); EOS # 0.5 10^3/uL (0.0-0.50); EOS % 4.6 % (0.0-3.0); HEMATOCRIT 46.8 % (42.0-52.0); HEMOGLOBIN 15.3 g/dl (13.5-17.5); IMMATURE GRANULOCYTE % 1.3 % (0-3.0); LYMPH # 1.3 10^3/uL (1.5-4.5); LYMPH % 13.5 % (24.0-44.0); MEAN CORPUSCULAR HGB CONC 32.7 g/dl (32.0-36.5); MEAN CORPUSCULAR VOLUME 88.8 fl (80.0-96.0); MONO # 0.7 10^3/uL (0.0-0.8); MONO % 6.8 % (0.0-5.0); NEUTROPHILS # 7.3 10^3/uL (1.8-7.7); NEUTROPHILS % 73.3 % (36.0-66.0); PLATELET COUNT, AUTOMATED 207 10^3/uL (150-450); RED BLOOD COUNT 5.27 10^6/uL (4.30-6.10); RED CELL DISTRIBUTION WIDTH 12.2 % (11.5-14.5); WHITE BLOOD COUNT 9.9 10^3/uL (4.0-10.0)
[2018-04-12 17:41] LABS: ALBUMIN 3.7 GM/DL (3.2-5.2); ALBUMIN/GLOBULIN RATIO 1.42 (1.00-1.93); ALKALINE PHOSPHATASE 147 U/L (45-117); ALT/SGPT 23 U/L (12-78); ANION GAP 9 MEQ/L (8-16); AST/SGOT 8 U/L (7-37); BILIRUBIN,TOTAL 0.4 MG/DL (0.2-1.0); BLOOD UREA NITROGEN 12 MG/DL (7-18); CALCIUM LEVEL 9.3 MG/DL (8.8-10.2); CARBON DIOXIDE LEVEL 29 MEQ/L (21-32); CHLORIDE LEVEL 99 MEQ/L (98-107); CREATININE FOR GFR 0.85 MG/DL (0.70-1.30); GLOMERULAR FILTRATION RATE > 60.0 (>49); GLUCOSE, FASTING 116 MG/DL (70-100); POTASSIUM SERUM 4.5 MEQ/L (3.5-5.1); SODIUM LEVEL 137 MEQ/L (136-145); TOTAL PROTEIN 6.3 GM/DL (6.4-8.2)
[2018-04-15 08:11] LABS: LAMOTRIGINE (LAMICTAL) 3.4 ug/mL (2.0-20.0)
[2018-04-18 08:06] LABS: LACOSAMIDE LEVEL 9.2 ug/mL (5.0-10.0)
== END ==
LOC: M LABNEURO 11:53
DX: G40.909 Epilepsy, unspecified, not intractable, without status epilepticus (principal)
CPT/HCPCS: 80053

== ENCOUNTER → 2018-11-09 | Outpatient (CLI) | payer MEDICARE, OTHER ==
[~2018-11-09] MED LIST changes: -/ADVA50050 INH; -/DICL25CA PO; -/DILT60TAB PO; -/METO5TA PO; -/TAMS4CA PO; -/WARF25TA PO; -/WARF5TA PO; +ADVA1AER2 INH; +ASPI-222 PO; +ASPI-255 PO; -ASPI325T24 PO; -ASPI325T28 PO; +COUM1TAB17 PO; +COUM1TAB18 PO; +CRES20TA2 PO; +DICL1CAP PO; +DILT1TAB12 PO; +FLOM0.4C39 PO; -FLOM5CAP PO; +IPRA0.00 INH; -IPRASOL4 INH; +MECL1CHW PO; -MECL1CHW2 PO; +METO1TAB88 PO; -RAMI1.25 PO; +RAMI1CAP21 PO; -TERA1CA PO; +TERA1CAP46 PO; +ZYRT10CA5 PO; -ZYRT10TA2 PO
[2018-11-09 09:54] LABS: BASO % 0.4 % (0.0-1.0); EOS # 0.3 10^3/uL (0.0-0.50); EOS % 3.6 % (0.0-3.0); HEMATOCRIT 46.2 % (42.0-52.0); LYMPH # 1.1 10^3/uL (1.5-4.5); LYMPH % 12.1 % (24.0-44.0); MEAN CORPUSCULAR HEMOGLOBIN 28.3 pg (27.0-33.0); MEAN CORPUSCULAR HGB CONC 32.5 g/dl (32.0-36.5); MEAN CORPUSCULAR VOLUME 87.2 fl (80.0-96.0); MONO # 0.7 10^3/uL (0.0-0.8); MONO % 7.6 % (0.0-5.0); NEUTROPHILS # 7.1 10^3/uL (1.8-7.7); NEUTROPHILS % 75.3 % (36.0-66.0); PLATELET COUNT, AUTOMATED 188 10^3/uL (150-450); WHITE BLOOD COUNT 9.4 10^3/uL (4.0-10.0)
[2018-11-09 10:29] LABS: ALBUMIN 3.4 GM/DL (3.2-5.2); ALT/SGPT 21 U/L (12-78); BILIRUBIN,TOTAL 0.4 MG/DL (0.2-1.0); BLOOD UREA NITROGEN 13 MG/DL (7-18); CALCIUM LEVEL 8.6 MG/DL (8.8-10.2); CARBON DIOXIDE LEVEL 29 MEQ/L (21-32); CHLORIDE LEVEL 102 MEQ/L (98-107); CHOLESTEROL LEVEL 84 MG/DL (<200); CREATININE FOR GFR 0.96 MG/DL (0.70-1.30); FREE T4 1.05 NG/DL (0.76-1.46); GLOMERULAR FILTRATION RATE > 60.0 (>49); GLUCOSE, FASTING 186 MG/DL (70-100); HDL CHOLESTEROL 34 MG/DL (>40); LDL CHOLESTEROL 27 MG/DL (<100); NON-HDL-C 50 MG/DL; POTASSIUM SERUM 4.2 MEQ/L (3.5-5.1); SODIUM LEVEL 138 MEQ/L (136-145); THYROID STIMULATING HORMONE 0.331 uIU/ML (0.358-3.740); TOTAL 25(OH) VITAMIN D 16.8 NG/ML (30.0-100.0); TOTAL PROTEIN 6.1 GM/DL (6.4-8.2); TRIGLYCERIDES LEVEL 117 MG/DL (<150)
== END ==
LOC: M LAB 09:13
PROVIDERS: ATTEND Physician Assistant Medical
DX: R53.83 Other fatigue (principal); I10 Essential (primary) hypertension; E78.2 Mixed hyperlipidemia

== ENCOUNTER → 2019-07-12 | Outpatient (REF) | payer MEDICARE, OTHER ==
[~2019-07-12] MED LIST changes: -ASPI-222 PO; +ASPI-527 PO; -AZIT500T2 PO; +AZIT500T5 PO; -OMEP40CA2 PO; +OMEP40CA97 PO
[2019-07-12 13:42] LABS: AMORPHOUS SEDIMENT SMALL (NEGATIVE); APPEARANCE, URINE TURBID (CLEAR); BACTERIA, URINE AUTO NEGATIVE (NEGATIVE); BILIRUBIN, URINE AUTO NEGATIVE (NEGATIVE); BLOOD, URINE BLOOD 3+ (NEGATIVE); COLOR, URINE YELLOW (YELLOW); GLUCOSE, URINE (UA) AUTO NEGATIVE (NEGATIVE); KETONE, URINE AUTO TRACE mg/dL (NEGATIVE); LEUKOCYTE ESTERASE, URINE AUTO 1+ (NEGATIVE); MUCUS, URINE SMALL (NEGATIVE); NITRITE, URINE AUTO NEGATIVE (NEGATIVE); PROTEIN, URINE AUTO 3+ mg/dL (NEGATIVE); RBC, URINE AUTO TNTC /HPF (0-3); SPECIFIC GRAVITY URINE AUTO 1.016 (1.002-1.035); SQUAMOUS EPITHELIAL CELL UR AU 0 /HPF (0-6); UROBILINOGEN, URINE AUTO 0.2 mg/dL (0.0-2.0); WBC, URINE AUTO TNTC /HPF (0-3)
== END ==
LOC: M SMT 12:55
PROVIDERS: ATTEND Nurse Practitioner Women's Health
DX: Z01.818 Encounter for other preprocedural examination (principal); R33.9 Retention of urine, unspecified
CPT/HCPCS: 51703; 81001; 87088; 87186; G0463

== ENCOUNTER → 2019-07-31 | Outpatient (CLI) | payer MEDICARE, OTHER ==
[~2019-07-31] MED LIST changes: +DITR5TAB PO
--- NOTE | 2019-07-31 11:32 | REP ---
Clinical: Preoperative assessment Comparison: The 10/02/2016 . Technique: PA and lateral. Findings: The mediastinum and cardiac silhouette are normal. The lung jason are clear and without acute consolidation, effusion, or pneumothorax. The skeletal structures are intact and normal. Impression: 1. No acute cardiopulmonary process. Electronically Signed by Matt Nielsen MD 07/31/2019 11:23 A
[2019-07-31 11:49] LABS: HEMATOCRIT 49.9 % (42.0-52.0); HEMOGLOBIN 16.6 g/dl (13.5-17.5); MEAN CORPUSCULAR HEMOGLOBIN 29.1 pg (27.0-33.0); MEAN CORPUSCULAR HGB CONC 33.3 g/dl (32.0-36.5); MEAN CORPUSCULAR VOLUME 87.4 fl (80.0-96.0); PLATELET COUNT, AUTOMATED 202 10^3/uL (150-450); RED BLOOD COUNT 5.71 10^6/uL (4.30-6.10); WHITE BLOOD COUNT 11.3 10^3/uL (4.0-10.0)
[2019-07-31 12:01] LABS: BLOOD UREA NITROGEN 16 MG/DL (7-18); CALCIUM LEVEL 9.2 MG/DL (8.8-10.2); CARBON DIOXIDE LEVEL 27 MEQ/L (21-32); CHLORIDE LEVEL 103 MEQ/L (98-107); CREATININE FOR GFR 0.91 MG/DL (0.70-1.30); GLOMERULAR FILTRATION RATE > 60.0 (>49); GLUCOSE, FASTING 110 MG/DL (70-100); INR 1.11; POTASSIUM SERUM 4.2 MEQ/L (3.5-5.1); SODIUM LEVEL 138 MEQ/L (136-145)
[2019-07-31 12:02] LABS: PARTIAL THROMBOPLASTIN TIME 29.3 SECONDS (25.0-38.4)
--- NOTE | 2019-07-31 14:17 | ECGEPIP ---
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
== END ==
LOC: M LAB 10:50
PROVIDERS: ATTEND Nurse Practitioner Women's Health
DX: Z01.818 Encounter for other preprocedural examination (principal); R33.9 Retention of urine, unspecified; Z79.82 Long term (current) use of aspirin; Z79.51 Long term (current) use of inhaled steroids

== ENCOUNTER → 2019-08-06 | Outpatient (REF) | payer MEDICARE, OTHER ==
[2019-08-06 13:59] LABS: APPEARANCE, URINE TURBID (CLEAR); BACTERIA, URINE AUTO 2+ (NEGATIVE); BILIRUBIN, URINE AUTO NEGATIVE (NEGATIVE); BLOOD, URINE BLOOD 3+ (NEGATIVE); COLOR, URINE AMBER (YELLOW); GLUCOSE, URINE (UA) AUTO 1+ mg/dL (NEGATIVE); KETONE, URINE AUTO NEGATIVE (NEGATIVE); LEUKOCYTE ESTERASE, URINE AUTO 2+ (NEGATIVE); MUCUS, URINE LARGE (NEGATIVE); NITRITE, URINE AUTO POSITIVE (NEGATIVE); PROTEIN, URINE AUTO 2+ mg/dL (NEGATIVE); RBC, URINE AUTO TNTC /HPF (0-3); SPECIFIC GRAVITY URINE AUTO 1.025 (1.002-1.035); SQUAMOUS EPITHELIAL CELL UR AU 4 /HPF (0-6); UROBILINOGEN, URINE AUTO 0.2 mg/dL (0.0-2.0); WBC, URINE AUTO TNTC /HPF (0-3)
== END ==
LOC: M SMT 13:22
PROVIDERS: ATTEND Nurse Practitioner Women's Health
DX: Z01.818 Encounter for other preprocedural examination (principal); R33.9 Retention of urine, unspecified

== ENCOUNTER 2019-08-20 10:48 | Day surgery (SDC) | payer MEDICARE, OTHER ==
[~2019-08-20] VITALS: Ht 182.9 cm; Wt 107.7 kg
[~2019-08-20 10:48] MED LIST changes: +BUPIVACAINE HCL 0.25% 30 ML VIAL As Ordered ONE; +GENTAMICIN 100 MG in IV 1 EA IV ONE; +LIDOCAINE 1% SDV INJ 30 ML VIAL As Ordered ONE; +LIDOCAINE 2% 5ML JELLY UROJET As Ordered ONE; +LR 1,000 ML IV ONE
[2019-08-20] MEDS ORDERED: fentaNYL 250 MCG/5 ML INJECTION (J3010) As Ordered ONE (12:06)
[2019-08-20] MEDS ORDERED: propofoL 200 MG/20 ML VIAL As Ordered ONE (12:07)
[2019-08-20] MEDS ORDERED: dexameTHASONE 4 MG/ML 1ML VIAL (J1100) As Ordered ONE (12:07)
[2019-08-20] MEDS ORDERED: LIDOCAINE 2% INJ 100 MG/5 ML SDV (FOR ANES.) As Ordered ONE (12:07)
[2019-08-20] MEDS ORDERED: MIDAZOLAM INJ 2 MG/2 ML VIAL (J2250) As Ordered ONE (12:07)
[2019-08-20] MEDS ORDERED: ONDANSETRON 4MG/2ML VIAL (J2405) As Ordered ONE (12:07)
[2019-08-20] MEDS ORDERED: GLYCOPYRROLATE INJ 0.2 MG/ML 2 ML VIAL As Ordered ONE (12:53)
[2019-08-20] MEDS ORDERED: ePHEDrine SULFATE 25 MG/5 ML(5MG/ML) SYRINGE As Ordered ONE (13:12)
[2019-08-20] MEDS ORDERED: PHENYLephrine HCL 500 MCG/5 ML (100MCG/ML) SYRINGE (J2370) As Ordered ONE (13:12)
[2019-08-20] MEDS ORDERED: ACETAMINOPHEN 1000MG 100ML IV BTL (OFIRMEV) (J0131 PER 10MG) As Ordered ONE (13:57)
[2019-08-20] MEDS ORDERED: ONDANSETRON 4MG/2ML VIAL (J2405) IV PRN (14:45)
[2019-08-20] MEDS ORDERED: fentaNYL 100 MCG/2 ML INJECTION (J3010) IV PRN (14:45)
[2019-08-20] MEDS ORDERED: HYDROMORPHONE HCL 0.5 MG/ 0.5 ML SYRINGE (J1170 PER 1) IV PRN (14:45)
[2019-08-20] MEDS ORDERED: PERCOCET 5MG/325MG TAB PO PRN (14:45)
[2019-08-20] MEDS ORDERED: oxyCODONE 5MG TAB PO PRN (14:45)
[2019-08-20] MEDS ORDERED: LR 1,000 ML IV SCH (14:45)
--- NOTE | 2019-08-20 14:48 | ROOPDOC ---
[facility] Report Of Operation Report of Operation DATE OF PROCEDURE: 08/20/19 PREPROCEDURE DIAGNOSIS: Urinary retention. POSTPROCEDURE DIAGNOSIS: Urinary retention. PROCEDURE: Open cystotomy with suprapubic catheter placement. SURGEON: Dr. Leandro Sam. PASTEURIZING SUPERVISOR: Vviienne Nolan NP. ANESTHESIA: General. 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 He has developed a ventral urethral erosion and therefore it has been recommended that we transition to managing his retention with a suprapubic catheter. He is brought to the operating room today for this procedure. DESCRIPTION OF PROCEDURE: The patient was brought to the operating room and general anesthesia was induced. Prophylactic antibiotics were infused. He was then placed in the supine position and prepped and draped in the usual sterile fashion. An 18Fr catheter was then inserted into the urethra and advanced into the bladder. The balloon was filled with 5mL of sterile water and then the catheter was plugged. At this point, an approximately 6-7cm midline incision was made just above the level of the pubic symphysis. We then dissected down through the subcutaneous tissues. The rectus fascia was then opened with electrocautery and the bellies of the rectus were bluntly spread. We then dissected down to the perivesical fat and this was opened using electrocautery. The urethral catheter was then used to fill the bladder with 120mL of normal saline. A spinal needle was utilized to aspirate in the area that we assumed was the bladder and yellow fluid was aspirated, confirming that we were in deed dissecting down at the level of the bladder. At this point, a #2-0 Vicryl pursestring stitch was placed at the dome of the bladder. A cystotomy was then performed and a 20- Chilean Patel catheter was inserted into the cystotomy and the balloon was filled with 7 mL of sterile water. The previously placed pursestring stitch was tied down on the catheter. I then irrigated the catheter and it irrigated easily. The abdominal cavity was then irrigated out thoroughly with warm saline. The previously placed urethral catheter was removed. We then closed the rectus fascia with [id number] #1 non-looped PDS sutures. The abdominal wound was then irrigated once again. Subcutaneous tissues were re-approximated with interrupted #2-0 Vicryl suture. The skin was then closed around the catheter with a running subcuticular #4-0 Monocryl suture. The catheter was further secured to the skin with two separate #2-0 Prolene sutures. Dermabond was then applied and this marked the conclusion of the procedure. The catheter was connected to gravity drainage. The patient was then awakened from anesthesia and transported to the recovery room in stable condition. ESTIMATED BLOOD LOSS 10 mL. COMPLICATIONS: None. SPECIMENS: None. PLAN: I will leave the patient's suprapubic catheter in for 6 weeks and then do the first change in the office at that time. LEANDRO SAM MD Aug 20, 2019 14:48
[2019-08-20 15:22] VITALS: BP 123/85
== END 2019-08-20 16:00 | disposition home or self-care (01) ==
LOC: M SDC 10:48
PROVIDERS: ATTEND Urology
DX: R33.9 Retention of urine, unspecified (principal); I25.10 Atherosclerotic heart disease of native coronary artery without angina pectoris; I10 Essential (primary) hypertension; I25.2 Old myocardial infarction; E78.5 Hyperlipidemia, unspecified; F32.9 Major depressive disorder, single episode, unspecified; Z86.73 Personal history of transient ischemic attack (TIA), and cerebral infarction without residual deficits; J44.9 Chronic obstructive pulmonary disease, unspecified; N40.0 Benign prostatic hyperplasia without lower urinary tract symptoms; Z79.01 Long term (current) use of anticoagulants; Z98.2 Presence of cerebrospinal fluid drainage device; Z79.899 Other long term (current) drug therapy
CPT/HCPCS: 51040; J0131; J1100; J1580; J2250; J2370; J2405; J3010

== ENCOUNTER → 2019-10-01 | Outpatient (REF) | payer MEDICARE, OTHER ==
[~2019-10-01] MED LIST changes: -BUPIVACAINE HCL 0.25% 30 ML VIAL As Ordered ONE; -GENTAMICIN 100 MG in IV 1 EA IV ONE; -LIDOCAINE 1% SDV INJ 30 ML VIAL As Ordered ONE; -LIDOCAINE 2% 5ML JELLY UROJET As Ordered ONE; -LR 1,000 ML IV ONE; +MECL-86 PO
== END ==
LOC: M SMT 13:19
PROVIDERS: ATTEND Urology
DX: N39.0 Urinary tract infection, site not specified (principal)

== ENCOUNTER 2019-10-05 14:56 | Outpatient (CLI) | payer MEDICARE, OTHER ==
[~2019-10-05] VITALS: Ht 182.9 cm; Wt 107.7 kg
[2019-10-05 14:45] VITALS: BP 132/83
[~2019-10-05 14:56] MED LIST changes: -LIDOCAINE 1% MDV 20ML VIAL As Ordered ONE
[2019-10-05] MEDS ORDERED: SODIUM CHLORIDE 0.9% INJ 10 ML SYR IV ONE ×2 (15:00→16:00)
[2019-10-05] MEDS ORDERED: SODIUM CHLORIDE 0.9% INJ 10 ML SYR IV PRN ×2 (15:00→15:45)
[2019-10-05] MEDS ORDERED: CEFEPIME HCL 1 GM in D5W MINI-BAG PLUS 50 ML IV ONE (15:00)
[2019-10-05 16:30] VITALS: BP 159/90
== END 2019-10-05 16:30 | disposition home or self-care (01) ==
LOC: M INFU 14:56
PROVIDERS: ATTEND Nurse Practitioner Women's Health
DX: N39.0 Urinary tract infection, site not specified (principal)
CPT/HCPCS: 36569; 96365; C1751; J0692; J1642; J1644

== ENCOUNTER → 2019-10-05 | Outpatient (CLI) | payer MEDICARE, OTHER ==
[~2019-10-05] MED LIST changes: +LIDOCAINE 1% MDV 20ML VIAL As Ordered ONE
[2019-10-05 14:35] VITALS: BP 128/69
--- NOTE | 2019-10-05 18:20 | REP ---
Ultrasonography single midline image with a measurement of 16.[address] Han Olivas for his urological procedure. Electronically Signed by Leo Ahumada DO 10/05/2019 08:00 P
== END ==
LOC: M IRPRO 13:28
PROVIDERS: ATTEND Urology
DX: N39.0 Urinary tract infection, site not specified (principal)

== ENCOUNTER 2020-10-04 12:50 | Emergency (ER) | payer MEDICARE, OTHER ==
[~2020-10-04] VITALS: Ht 182.9 cm; Wt 109.5 kg
[~2020-10-04 12:50] MED LIST changes: +ASPI-569 PO; -ASPI81TAEC PO
[2020-10-04 15:29] LABS: BASO # 0.1 10^3/uL (0.0-0.2); BASO % 0.4 % (0.0-1.0); EOS # 0.4 10^3/uL (0.0-0.5); EOS % 2.2 % (0.0-3.0); HEMATOCRIT 50.9 % (42.0-52.0); HEMOGLOBIN 16.9 g/dl (13.5-17.5); LYMPH # 1.4 10^3/uL (1.5-5.0); LYMPH % 8.6 % (24.0-44.0); MEAN CORPUSCULAR HEMOGLOBIN 29.4 pg (27.0-33.0); MEAN CORPUSCULAR HGB CONC 33.2 g/dl (32.0-36.5); MEAN CORPUSCULAR VOLUME 88.7 fl (80.0-96.0); MONO # 1.4 10^3/uL (0.0-0.8); MONO % 8.7 % (2.0-8.0); NEUTROPHILS # 12.9 10^3/uL (1.5-8.5); NEUTROPHILS % 79.2 % (36.0-66.0); PLATELET COUNT, AUTOMATED 212 10^3/uL (150-450); RED BLOOD COUNT 5.74 10^6/uL (4.30-6.10); WHITE BLOOD COUNT 16.2 10^3/uL (4.0-10.0)
--- NOTE | 2020-10-04 15:43 | SMCUROLCON ---
Urology Consultation General Date of Consultation 10/04/20 Reason For Consultation This patient is seen for Urinary Problem. History of Present Illness The patient is a 65-year-old male with a past medical history for suprapubic catheter drainage for urinary retention. He presents to the emergency room today because of leakage of urine through the urethra and no urine draining from the suprapubic catheter. He states that he last had his catheter changed just over 2 weeks ago. Examination of the catheter shows sediment. Debris obstructing the channel. Past Medical History Medical History Ataxia, COPD, seizure disorder, altered mental status, weakness, urinary tract infection, tinea corpora, suprapubic Patel catheter for retention Allergies Allergies: Coded Allergies: Sulfa (Sulfonamide Antibiotics) (Verified Allergy, Unknown, 10/05/19) amoxicillin (Verified Allergy, Unknown, 10/05/19) ciprofloxacin (Verified Adverse Reaction, Mild, confusion, 08/01/19) dicloxacillin (Verified Adverse Reaction, Mild, GI upset, 08/01/19) zonisamide (Verified Adverse Reaction, Mild, GI upset, 08/01/19) Vital Signs/I&O Vital Signs Date Time Temp Pulse Resp B/P (MAP) Pulse Ox O2 Delivery O2 Flow Rate FiO2 10/04/20 13:40 10/04/20 12:52 97.9 127 16 96 Room Air Laboratory Data 24H Labs Laboratory Tests 2 10/04/20 14:59: POC Glucose (Misc Panel) 241H, POC Sodium (Misc Panel) 136, POC Potassium (Misc Panel) 4.8, POC Chloride (Misc Panel) 102, POC Total CO2 (Misc Panel) 26.0, POC Blood Urea Nitrogen (Misc Panel 24, POC Ionized Calcium (Misc Panel) 4.3L, POC Creatinine (Misc Panel) 0.7, POC Hematocrit (Misc Panel) 52.0H 10/04/20 15:18: Immature Granulocyte % (Auto) 0.9, Neutrophils (%) (Auto) 79.2H, Lymphocytes (%) (Auto) 8.6L, Monocytes (%) (Auto) 8.7H, Eosinophils (%) (Auto) 2.2, Basophils (%) (Auto) 0.4, Neutrophils # (Auto) 12.9H, Lymphocytes # (Auto) 1.4L, Monocytes # (Auto) 1.4H, Eosinophils # (Auto) 0.4, Basophils # (Auto) 0.1, Nucleated Red Blood Cells % (auto) 0.0 CBC/BMP Laboratory Tests 10/04/20 15:18 Assessment Obstructed suprapubic catheter Plan The suprapubic catheter was exchanged for a new 20 Bengali catheter. The catheter was irrigating shown to be in good position. The balloon was inflated with 8 mL of water and connected to closed drainage. The patient will continue to hydrate and may need to flush the catheter daily at home. Return to the clinic for catheter change as scheduled KRYSTAL ONTIVEROS MD Oct 04, 2020 15:43
[2020-10-04] MEDS ORDERED: DOXY100C37 PO (15:51)
[2020-10-04 16:10] VITALS: BP 110/76
== END 2020-10-04 16:32 | disposition home or self-care (01) ==
LOC: M ED 12:50
DX: N39.0 Urinary tract infection, site not specified (principal); T83.198A Other mechanical complication of other urinary devices and implants, initial encounter; J44.9 Chronic obstructive pulmonary disease, unspecified; I25.2 Old myocardial infarction; Z79.01 Long term (current) use of anticoagulants; Z79.51 Long term (current) use of inhaled steroids; Z79.899 Other long term (current) drug therapy; Z87.891 Personal history of nicotine dependence; Z88.1 Allergy status to other antibiotic agents; Z88.2 Allergy status to sulfonamides; Z88.8 Allergy status to other drugs, medicaments and biological substances

== ENCOUNTER 2020-11-09 09:44 | Emergency (ER) | payer MEDICARE, OTHER ==
[~2020-11-09] VITALS: Ht 182.9 cm; Wt 109.1 kg
[~2020-11-09 09:44] MED LIST changes: +DOXY100C37 PO
--- NOTE | 2020-11-09 10:57 | REP ---
INDICATION: RETENION/cath dysf. Suprapubic catheter. Recently replaced. COMPARISON: None. TECHNIQUE: Transabdominal bladder scanning. FINDINGS: There is hypoechoic floating material consistent with cellular debris or proteinaceous material in the lumen of the bladder. No bladder mass lesion is seen. The prostate is enlarged measuring 6.6 x 4.7 x 6.7 cm in transabdominal dimension. Calculated prostate volume 135.7 mL. The calculated bladder volume is calculated bladder volume is 75 mL. There is mild diffuse bladder wall thickening. IMPRESSION: Prostate enlargement. Proteinaceous cellular material or debris in the urinary bladder. <Electronically signed by Jack Lujan > 11/09/20 [id number]
[2020-11-09 11:37] VITALS: BP 112/70
--- NOTE | 2020-11-11 10:32 | SMCUROLCON ---
Urology Consultation General Date of Consultation 11/11/20 Reason For Consultation This patient is seen for Catheter Issue. History of Present Illness The patient is a 65-year-old male with a past medical history for urinary retention. He has a suprapubic catheter present which was changed about 2 weeks ago. He states that he woke up this morning and felt this bladder was full. Attempts at irrigating the suprapubic catheter were unsuccessful so presented to the emergency room for evaluation. The catheter appeared to be in the correct position but would not flush. The catheter was therefore exchanged for a new 18 Gambian Patel catheter which then drained the bladder well. The balloon was inflated with 8 mL of sterile water The patient will irrigate the catheter 3 times a day at home. Past Medical History Medical History Gross hematuria. BPH, urinary retention Social History Drugs: denies Allergies Allergies: Coded Allergies: Sulfa (Sulfonamide Antibiotics) (Verified Allergy, Unknown, 11/09/20) amoxicillin (Verified Allergy, Unknown, 11/09/20) ciprofloxacin (Verified Adverse Reaction, Mild, confusion, 11/09/20) dicloxacillin (Verified Adverse Reaction, Mild, GI upset, 11/09/20) zonisamide (Verified Adverse Reaction, Mild, GI upset, 11/09/20) Review of Systems General: Reports: Normal Appetite; Denies: Fatigue, Malaise Constitutional: Denies: Fever, Chills, Sweats, Weakness, Malaise Eyes: Denies: Pain, Vision change ENT: Denies: Head Aches, Sore Throat, Epistaxis Skin: Denies: Rash, Lesions, Breakdown, Nail Changes Pulmonary: Denies: Dyspnea, Cough Cardiovascular: Denies Chest Pain, Denies Palpitations Gastrointestinal: Denies: Nausea, Vomiting, Abdominal Pain Genitourinary: Denies: Dysuria, Frequency, Incontinence, Hematuria Hematologic: Denies: Bruising, Bleeding Excessively Endocrine: Denies: Polydipsia, Polyphagia, Polyuria Musculoskeletal: Denies: Neck Pain, Back Pain Neurological: Denies: Weakness, Numbness, Incoordination, Change in Speech Psych: Reports: Mood Normal; Denies: Anxiety, Depression Physical Examination General Exam: Alert, No Acute Distress EYE EXAM: PERRLA, Conjunctiva & lids normal, EOMI; No: Sclera icteric ENT EXAM: Atraumatic, Mucous membr. moist/pink, Pharynx Normal Neck Exam: Supple; No: JVD, thyromegaly Male Exam: Normal Genital Exam Skin Exam: Nl turgor and temperature; No: Rash, Breakdown Vital Signs/I&O Vital Signs Date Time Temp Pulse Resp B/P (MAP) Pulse Ox O2 Delivery O2 Flow Rate FiO2 11/09/20 11:37 98.1 81 18 112/70 (84) 99 Room Air Assessment Obstructed urinary suprapubic catheter Plan The suprapubic catheter was changed for a new 18 Gambian catheter and connected to closed drainage. The patient will irrigate catheter 3 times a day at home and return as scheduled for catheter change. Time Spent on Consult: Time Spent / Consult (Minutes): 45 KRYSTAL ONTIVEROS MD November 11, 2020 10:32
== END 2020-11-09 11:41 | disposition home or self-care (01) ==
LOC: M ED 09:44
DX: T83.198A Other mechanical complication of other urinary devices and implants, initial encounter (principal); N40.0 Benign prostatic hyperplasia without lower urinary tract symptoms; J44.9 Chronic obstructive pulmonary disease, unspecified; I10 Essential (primary) hypertension; Z87.891 Personal history of nicotine dependence; Z88.1 Allergy status to other antibiotic agents; Z88.2 Allergy status to sulfonamides; Z79.899 Other long term (current) drug therapy

== ENCOUNTER 2020-11-18 18:57 | Emergency (ER) | payer MEDICARE, OTHER ==
[~2020-11-18] VITALS: Ht 182.9 cm; Wt 110.9 kg
[2020-11-18 18:58] VITALS: BP 103/76
== END 2020-11-18 20:12 | disposition left against medical advice (07) ==
LOC: M ED 18:57
DX: Z53.21 Procedure and treatment not carried out due to patient leaving prior to being seen by health care provider (principal)

== ENCOUNTER → 2021-01-01 | Outpatient (REF) | payer MEDICARE, OTHER ==
[~2021-01-01] MED LIST changes: -DOXY100C37 PO; +DOXY1CAP62 PO; +OMEP40CA4 PO; -OMEP40CA97 PO
[2021-01-01 16:53] LABS: APPEARANCE, URINE MANUAL TURBID (CLEAR)
[2021-01-01 16:54] LABS: COLOR, URINE MANUAL BROWN (YELLOW)
[2021-01-01 16:59] LABS: SPECIFIC GRAVITY,URINE MANUAL 1.026 (1.002-1.035)
[2021-01-01 17:00] LABS: BILIRUBIN, URINE MANUAL NEGATIVE (NEGATIVE); BLOOD URINE MANUAL POSITIVE (NEGATIVE); GLUCOSE, URINE (UA) MANUAL 3+(500 MG/DL) mg/dL (NEGATIVE); KETONE, URINE MANUAL NEGATIVE (NEGATIVE); LEUKOCYTE ESTERASE, URINE MAN POSITIVE (NEGATIVE); NITRITE, URINE MANUAL POSITIVE (NEGATIVE); PROTEIN, URINE MANUAL 2+ mg/dL (NEGATIVE); UROBILINOGEN, URINE MANUAL NORMAL (NORMAL)
[2021-01-01 18:43] LABS: BACTERIA, URINE LARGE AMOUNT; RBC, URINE TNTC /hpf (0-3); SQUAMOUS EPITHELIAL CELL URINE NONE SEEN /hpf (SMALL AMT); TRIPLE PHOSPHATE CRYSTAL,URINE LARGE AMOUNT /hpf; WBC, URINE TNTC /hpf (0-3)
[2021-01-01 18:44] LABS: AMORPHOUS SEDIMENT, URINE SMALL AMOUNT (NEGATIVE); HYALINE CAST, URINE NONE SEEN /lpf (0-1)
== END ==
LOC: M SMT 16:41
PROVIDERS: ATTEND Urology
DX: R31.9 Hematuria, unspecified (principal)

== ENCOUNTER → 2021-03-31 | Outpatient (CLI) | payer MEDICARE, OTHER ==
[2021-03-31 10:23] LABS: BASO # 0.1 10^3/uL (0.0-0.2); BASO % 0.9 % (0.0-1.0); EOS % 9.9 % (0.0-3.0); HEMATOCRIT 50.2 % (42.0-52.0); HEMOGLOBIN 16.6 g/dl (13.5-17.5); LYMPH # 1.3 10^3/uL (1.5-5.0); LYMPH % 12.9 % (24.0-44.0); MEAN CORPUSCULAR HEMOGLOBIN 29.6 pg (27.0-33.0); MEAN CORPUSCULAR HGB CONC 33.1 g/dl (32.0-36.5); MEAN CORPUSCULAR VOLUME 89.6 fl (80.0-96.0); MONO # 0.8 10^3/uL (0.0-0.8); MONO % 7.8 % (2.0-8.0); NEUTROPHILS # 6.5 10^3/uL (1.5-8.5); PLATELET COUNT, AUTOMATED 184 10^3/uL (150-450); WHITE BLOOD COUNT 9.7 10^3/uL (4.0-10.0)
[2021-03-31 10:50] LABS: ALBUMIN 3.5 GM/DL (3.2-5.2); ALT/SGPT 24 U/L (12-78); BILIRUBIN,TOTAL 0.7 MG/DL (0.2-1.0); BLOOD UREA NITROGEN 14 MG/DL (7-18); CARBON DIOXIDE LEVEL 26 MEQ/L (21-32); CHLORIDE LEVEL 104 MEQ/L (98-107); CHOLESTEROL LEVEL 92 MG/DL (<200); CHOLESTEROL RISK RATIO 2.139 (<5); CREATININE FOR GFR 0.79 MG/DL (0.70-1.30); FREE T4 1.13 NG/DL (0.76-1.46); GLOMERULAR FILTRATION RATE > 60.0 (>49); GLUCOSE, FASTING 262 MG/DL (70-100); HDL CHOLESTEROL 43 MG/DL (>40); HEMOGLOBIN A1c 10.4 %; LDL CHOLESTEROL 36 MG/DL (<100); NON-HDL-C 49 MG/DL; POTASSIUM SERUM 4.1 MEQ/L (3.5-5.1); SODIUM LEVEL 137 MEQ/L (136-145); THYROID STIMULATING HORMONE 0.192 uIU/ML (0.358-3.740); TOTAL PROTEIN 6.2 GM/DL (6.4-8.2); TRIGLYCERIDES LEVEL 67 MG/DL (<150)
== END ==
LOC: M LAB 09:22
PROVIDERS: ATTEND Physician Assistant Medical
DX: A49.02 Methicillin resistant Staphylococcus aureus infection, unspecified site (principal); R53.83 Other fatigue; I10 Essential (primary) hypertension; E78.2 Mixed hyperlipidemia; E11.9 Type 2 diabetes mellitus without complications

== ENCOUNTER → 2021-03-31 | Outpatient (CLI) | payer MEDICARE, OTHER | LOC: M LAB 09:25 | PROVIDERS: ATTEND Nurse Practitioner Family | DX: A49.02 Methicillin resistant Staphylococcus aureus infection, unspecified site (principal) ==

== ENCOUNTER → 2021-11-19 | Outpatient (REF) | payer MEDICARE, OTHER ==
[~2021-11-19] MED LIST changes: +DOXY-443 PO; -DOXY1CAP62 PO
[2021-11-19 15:24] LABS: APPEARANCE, URINE MANUAL TURBID (CLEAR)
[2021-11-19 15:25] LABS: COLOR, URINE MANUAL DK YELLOW (YELLOW); SPECIFIC GRAVITY,URINE MANUAL 1.023 (1.002-1.035)
[2021-11-19 15:26] LABS: BILIRUBIN, URINE MANUAL NEGATIVE (NEGATIVE); BLOOD URINE MANUAL POSITIVE (NEGATIVE); GLUCOSE, URINE (UA) MANUAL NEGATIVE (NEGATIVE); KETONE, URINE MANUAL NEGATIVE (NEGATIVE); LEUKOCYTE ESTERASE, URINE MAN POSITIVE (NEGATIVE); NITRITE, URINE MANUAL POSITIVE (NEGATIVE); PROTEIN, URINE MANUAL 2+ mg/dL (NEGATIVE); UROBILINOGEN, URINE MANUAL NORMAL (NORMAL)
[2021-11-19 17:20] LABS: AMORPHOUS SEDIMENT, URINE MOD AMOUNT (NEGATIVE); BACTERIA, URINE LARGE AMOUNT; MUCUS, URINE MOD AMOUNT (NEGATIVE); SQUAMOUS EPITHELIAL CELL URINE NONE SEEN /hpf (SMALL AMT); TRIPLE PHOSPHATE CRYSTAL,URINE LARGE AMOUNT /hpf; WBC, URINE TNTC /hpf (0-3)
[2021-11-19 17:21] LABS: HYALINE CAST, URINE NONE SEEN /lpf (0-1)
== END ==
LOC: M SMT 13:20
PROVIDERS: ATTEND Nurse Practitioner Women's Health
DX: R82.90 Unspecified abnormal findings in urine (principal)

== ENCOUNTER 2022-05-28 16:11 | Emergency (ER) | payer MEDICARE, OTHER ==
[~2022-05-28] VITALS: Ht 182.9 cm; Wt 111.0 kg
[~2022-05-28 16:11] MED LIST changes: +CLOP75TA99 PO; -PLAV1TAB2 PO
[2022-05-28] MEDS ORDERED: NS 1,000 ML IV ONE (17:00)
[2022-05-28] MEDS ORDERED: NITR-67 PO (17:46)
[2022-05-28 17:53] LABS: BASO % 0.3 % (0.0-1.0); EOS % 0.2 % (0.0-3.0); HEMATOCRIT 46.5 % (42.0-52.0); HEMOGLOBIN 15.6 g/dl (13.5-17.5); LYMPH # 0.7 10^3/uL (1.5-5.0); LYMPH % 7.3 % (24.0-44.0); MEAN CORPUSCULAR HEMOGLOBIN 28.4 pg (27.0-33.0); MEAN CORPUSCULAR HGB CONC 33.5 g/dl (32.0-36.5); MEAN CORPUSCULAR VOLUME 84.5 fl (80.0-96.0); MONO # 1.2 10^3/uL (0.0-0.8); MONO % 11.7 % (2.0-8.0); NEUTROPHILS # 8.1 10^3/uL (1.5-8.5); NEUTROPHILS % 79.9 % (36.0-66.0); PLATELET COUNT, AUTOMATED 223 10^3/uL (150-450); WHITE BLOOD COUNT 10.1 10^3/uL (4.0-10.0)
[2022-05-28 18:26] LABS: ALBUMIN 3.1 G/DL (3.2-5.2); ALKALINE PHOSPHATASE 113 U/L (46-116); ALT/SGPT 26 U/L (7.0-40); AST/SGOT 23 U/L (<34); BILIRUBIN,DIRECT 0.3 MG/DL (<0.4); BILIRUBIN,TOTAL 0.5 MG/DL (0.3-1.2); BLOOD UREA NITROGEN 21 MG/DL (9-23); CALCIUM LEVEL 8.3 MG/DL (8.3-10.6); CARBON DIOXIDE LEVEL 23 MMOL/L (20-31); CHLORIDE LEVEL 96 MMOL/L (98-107); CREATININE FOR GFR 0.74 MG/DL (0.70-1.30); GLOMERULAR FILTRATION RATE > 60.0 (>49); GLUCOSE, FASTING 152 MG/DL (74-106); POTASSIUM SERUM 3.7 MMOL/L (3.5-5.1); SODIUM LEVEL 133 MMOL/L (136-145); TOTAL PROTEIN 6.1 G/DL (5.7-8.2)
[2022-05-28] MEDS ORDERED: LEVO1TAB40 PO (19:10)
[2022-05-28] MEDS ORDERED: LevoFLOXacin 750 MG TABLET PO ONE (19:10)
[2022-05-28 19:37] VITALS: BP 102/64
== END 2022-05-28 20:21 | disposition home or self-care (01) ==
LOC: M ED 16:11
DX: N39.0 Urinary tract infection, site not specified (principal); T83.598A Infection and inflammatory reaction due to other prosthetic device, implant and graft in urinary system, initial encounter; I25.2 Old myocardial infarction; E11.9 Type 2 diabetes mellitus without complications; E78.5 Hyperlipidemia, unspecified; K21.9 Gastro-esophageal reflux disease without esophagitis; J45.909 Unspecified asthma, uncomplicated; G40.89 Other seizures; F32.A Depression, unspecified; Z88.2 Allergy status to sulfonamides; Z88.1 Allergy status to other antibiotic agents; Z79.51 Long term (current) use of inhaled steroids; Z79.810 Long term (current) use of selective estrogen receptor modulators (SERMs); Z79.01 Long term (current) use of anticoagulants; Z79.2 Long term (current) use of antibiotics; Z79.899 Other long term (current) drug therapy

== ENCOUNTER → 2022-06-17 | Outpatient (REF) | payer MEDICARE, OTHER ==
[~2022-06-17] MED LIST changes: +LEVO1TAB40 PO; +NITR-67 PO
[2022-06-17 19:32] LABS: APPEARANCE, URINE MANUAL TURBID (CLEAR); COLOR, URINE MANUAL RED (YELLOW)
[2022-06-17 19:41] LABS: BILIRUBIN, URINE MANUAL NEGATIVE (NEGATIVE); BLOOD URINE MANUAL POSITIVE (NEGATIVE); GLUCOSE, URINE (UA) MANUAL NEGATIVE (NEGATIVE); KETONE, URINE MANUAL NEGATIVE (NEGATIVE); LEUKOCYTE ESTERASE, URINE MAN POSITIVE (NEGATIVE); NITRITE, URINE MANUAL NEGATIVE (NEGATIVE); PROTEIN, URINE MANUAL 2+ mg/dL (NEGATIVE); SPECIFIC GRAVITY,URINE MANUAL 1.005 (1.002-1.035); UROBILINOGEN, URINE MANUAL NORMAL (NORMAL)
[2022-06-17 20:51] LABS: BACTERIA, URINE NONE SEEN; HYALINE CAST, URINE NONE SEEN /lpf (0-1); RBC, URINE TNTC /hpf (0-3); SQUAMOUS EPITHELIAL CELL URINE NONE SEEN /hpf (SMALL AMT); WBC, URINE 0-1 /hpf (0-3)
== END ==
LOC: M SMT 17:33
PROVIDERS: ATTEND Urology
DX: R31.9 Hematuria, unspecified (principal)

== ENCOUNTER 2023-08-09 17:32 | Inpatient (IN) | payer MEDICARE, OTHER ==
[~2023-08-09] VITALS: Ht 182.9 cm; Wt 109.1 kg
[~2023-08-09 17:32] MED LIST changes: -ASPI81CH33 PO; -BUDE10.2 INH; -BUDE10.3 INH; -DUPI300P SQ; -LAMO150T3 PO; -OMEP-173 PO
[2023-08-09] MEDS ORDERED: LIDOCAINE 2% 5ML JELLY UROJET TOP ONE (18:05)
[2023-08-09 18:30] LABS: ABG BASE EXCESS -2.9 (-2.0-2.0); ABG HCO3 18.1 MMOL/L (22.0-26.0); ABG O2 SATURATION 93.7 % (95.0-99.0); ABG PARTIAL PRESSURE CO2 24.3 mmHg (35.0-45.0); ABG PARTIAL PRESSURE O2 60.8 mmHg (75.0-100.0); ABG TOTAL CO2 18.9 MMOL/L (23.0-31.0); ABG pH (ARTERIAL) 7.491 UNITS (7.350-7.450)
[2023-08-09] MEDS: ACETAMINOPHEN TAB 650MG DOSE (2X325MG) PO ONE (18:40)
[2023-08-09] MEDS: NS 500 ML IV ONE (18:40)
[2023-08-09 19:02] LABS: BASO % 0.2 % (0.0-1.0); HEMATOCRIT 48.8 % (42.0-52.0); HEMOGLOBIN 16.8 g/dl (13.5-17.5); LYMPH # 0.5 10^3/uL (1.5-5.0); LYMPH % 2.3 % (24.0-44.0); MEAN CORPUSCULAR HEMOGLOBIN 30.4 pg (27.0-33.0); MEAN CORPUSCULAR HGB CONC 34.4 g/dl (32.0-36.5); MEAN CORPUSCULAR VOLUME 88.2 fl (80.0-96.0); MONO # 1.4 10^3/uL (0.0-0.8); NEUTROPHILS # 17.5 10^3/uL (1.5-8.5); NEUTROPHILS % 89.8 % (36.0-66.0); PLATELET COUNT, AUTOMATED 195 10^3/uL (150-450); RED BLOOD COUNT 5.53 10^6/uL (4.30-6.10); WHITE BLOOD COUNT 19.5 10^3/uL (4.0-10.0)
[2023-08-09 19:21] LABS: BLOOD UREA NITROGEN 23 MG/DL (9-23); CALCIUM LEVEL 8.4 MG/DL (8.3-10.6); CARBON DIOXIDE LEVEL 23 MMOL/L (20-31); CHLORIDE LEVEL 97 MMOL/L (98-107); CREATININE FOR GFR 0.78 MG/DL (0.70-1.30); GLOMERULAR FILTRATION RATE > 60.0 (>42); GLUCOSE, FASTING 348 MG/DL (74-106); POTASSIUM SERUM 4.2 MMOL/L (3.5-5.1); SODIUM LEVEL 130 MMOL/L (136-145)
[2023-08-09] MEDS ORDERED: NS IV STA (19:44)
[2023-08-09] MEDS: CEFEPIME HCL 2 GM in D5W MINI-BAG PLUS 50 ML IV ONE (20:14)
[2023-08-09] MEDS: NS IV STA (20:15)
[2023-08-09 21:22] LABS: ALBUMIN 3.2 G/DL (3.2-5.2); ALKALINE PHOSPHATASE 132 U/L (46-116); ALT/SGPT 21 U/L (7.0-40); AST/SGOT 15 U/L (<34); BILIRUBIN,DIRECT 0.4 MG/DL (<0.4); BILIRUBIN,TOTAL 0.8 MG/DL (0.3-1.2)
[2023-08-09] MEDS: dexAMETHasone 20MG/5ML VIAL IV SCH (21:22)
[2023-08-09] MEDS ORDERED: ASPI81CH33 PO (21:31)
[2023-08-09] MEDS ORDERED: BUDE10.3 INH (21:31)
[2023-08-09] MEDS ORDERED: HOME MED LIST COMPLETE! XX SCH (21:35)
[2023-08-10] MEDS ORDERED: GLUCOSE 4GM CHEW TABLET PO PRN (01:10)
[2023-08-10] MEDS ORDERED: IPRATROPIUM 0.5MG/ALBUTEROL 2.5MG INH SOL UD 3ML (DUONEB) NEB PRN (01:10)
[2023-08-10] MEDS ORDERED: GLUCAGON INJ 1MG VIAL SC PRN (01:10)
[2023-08-10] MEDS ORDERED: DEXTROSE 50% 50ML SYRINGE IV PRN (01:10)
[2023-08-10] MEDS: LINEZOLID 600MG TABLET (ZYVOX) PO SCH ×2 (01:51→05:33)
[2023-08-10 02:31] LABS: INR 1.12; PROTHROMBIN TIME 14.1 SECONDS (12.5-14.5)
[2023-08-10 02:32] LABS: PARTIAL THROMBOPLASTIN TIME 28.4 SECONDS (24.8-34.2)
[2023-08-10 02:35] LABS: D-DIMER QUANT 0.47 ug/mL (<0.5)
[2023-08-10 02:45] LABS: C REACTIVE PROTEIN QUANTITATIV 6.9 MG/DL (<1.0); MAGNESIUM LEVEL 1.5 MG/DL (1.8-2.4)
[2023-08-10 02:46] LABS: BLOOD UREA NITROGEN 15 MG/DL (9-23); CALCIUM LEVEL 7.7 MG/DL (8.3-10.6); CARBON DIOXIDE LEVEL 23 MMOL/L (20-31); CHLORIDE LEVEL 101 MMOL/L (98-107); CREATININE FOR GFR 0.71 MG/DL (0.70-1.30); GLOMERULAR FILTRATION RATE > 60.0 (>42); GLUCOSE, FASTING 336 MG/DL (74-106); POTASSIUM SERUM 4.3 MMOL/L (3.5-5.1); SODIUM LEVEL 131 MMOL/L (136-145)
[2023-08-10 02:49] LABS: FERRITIN 283.5 NG/ML (10.5-307.3)
[2023-08-10 03:02] VITALS: BP 112/68; TEMP 98.1; O2SAT 95
[2023-08-10 03:22] LABS: PROCALCITONIN 0.25 ng/ml
[2023-08-10] MEDS: NS 1,000 ML IV SCH (04:09)
[2023-08-10] MEDS: CEFEPIME HCL 2 GM in D5W MINI-BAG PLUS 50 ML IV SCH (04:10)
[2023-08-10 05:22] VITALS: O2SAT 95
[2023-08-10] MEDS: REMDESIVIR 200 MG in NS 250 ML IV ONE (05:33)
[2023-08-10] MEDS: HEPARIN SOD (PORCINE) 5000UNITS/ML 1ML VIAL/SYRINGE SQ SCH (05:33)
[2023-08-10 07:40] LABS: BASO % 0.1 % (0.0-1.0); HEMATOCRIT 43.8 % (42.0-52.0); LYMPH # 0.8 10^3/uL (1.5-5.0); LYMPH % 5.1 % (24.0-44.0); MEAN CORPUSCULAR HEMOGLOBIN 30.2 pg (27.0-33.0); MEAN CORPUSCULAR HGB CONC 34.2 g/dl (32.0-36.5); MEAN CORPUSCULAR VOLUME 88.3 fl (80.0-96.0); MONO # 0.9 10^3/uL (0.0-0.8); MONO % 6.2 % (2.0-8.0); NEUTROPHILS # 13.1 10^3/uL (1.5-8.5); NEUTROPHILS % 87.9 % (36.0-66.0); PLATELET COUNT, AUTOMATED 160 10^3/uL (150-450); RED BLOOD COUNT 4.96 10^6/uL (4.30-6.10)
[2023-08-10] MEDS: SYMBICORT 160/4.5MCG INHALER 6GM INH SCH (08:00)
[2023-08-10 08:04] LABS: BLOOD UREA NITROGEN 18 MG/DL (9-23); CALCIUM LEVEL 7.8 MG/DL (8.3-10.6); CARBON DIOXIDE LEVEL 21 MMOL/L (20-31); CHLORIDE LEVEL 103 MMOL/L (98-107); CREATININE FOR GFR 0.56 MG/DL (0.70-1.30); GLOMERULAR FILTRATION RATE > 60.0 (>42); GLUCOSE, FASTING 329 MG/DL (74-106); SODIUM LEVEL 133 MMOL/L (136-145)
[2023-08-10] MEDS: INSULIN LISPRO (NovoLOG) PER UNIT SC SCH ×2 (08:35→20:31)
[2023-08-10] MEDS: lamoTRIgine 100MG TAB PO SCH (09:00)
[2023-08-10] MEDS ORDERED: dexAMETHasone 4 MG TAB PO SCH (09:00)
[2023-08-10] MEDS: lamoTRIgine 25MG TAB PO SCH (09:00)
[2023-08-10] MEDS: NYSTATIN 100,000 UNITS/GM TOPICAL PWD 15GM TOP SCH (09:00)
[2023-08-10] MEDS ORDERED: dexAMETHasone 2 MG TAB PO SCH (09:00)
[2023-08-10] MEDS: ramipriL 1.25 MG CAP PO SCH (09:00)
[2023-08-10] MEDS: ASPIRIN 81MG CHEW TABLET PO SCH (10:53)
[2023-08-10] MEDS: LEVEMIR (INSULIN DETEMIR) 1 UNITS/0.01ML SC SCH ×2 (10:53→20:30)
[2023-08-10] MEDS: dexAMETHasone 2 MG TAB PO SCH (10:53)
[2023-08-10] MEDS: CLOPIDOGREL 75 MG TAB PO SCH (10:53)
[2023-08-10] MEDS: LACOSAMIDE 50 MG TAB (VIMPAT) PO SCH (11:29)
[2023-08-10] MEDS: PANTOPRAZOLE 40MG VIAL IV SCH (11:29)
[2023-08-10] MEDS ORDERED: OMEP-173 PO (13:04)
[2023-08-10] MEDS ORDERED: FINA5TAB2 PO (13:04)
[2023-08-10] MEDS ORDERED: DUPI300P SQ (13:04)
[2023-08-10] MEDS ORDERED: BUDE10.2 INH (13:04)
[2023-08-10] MEDS ORDERED: LAMO150T3 PO (13:04)
[2023-08-10 20:16] VITALS: BP 138/84; TEMP 98.6; O2SAT 90
[2023-08-10] MEDS: ATORVASTATIN 20 MG TAB PO SCH (20:32)
[2023-08-11 02:00] VITALS: BP 103/65; TEMP 98.1; O2SAT 91
[2023-08-11 05:38] VITALS: BP 103/67; TEMP 98.1; O2SAT 90
[2023-08-11] MEDS: REMDESIVIR 100 MG in NS 250 ML IV SCH (05:46)
[2023-08-11 06:34] LABS: BASO % 0.2 % (0.0-1.0); EOS % 0.1 % (0.0-3.0); HEMOGLOBIN 13.9 g/dl (13.5-17.5); LYMPH # 1.3 10^3/uL (1.5-5.0); LYMPH % 12.1 % (24.0-44.0); MEAN CORPUSCULAR HEMOGLOBIN 30.4 pg (27.0-33.0); MEAN CORPUSCULAR HGB CONC 34.8 g/dl (32.0-36.5); MEAN CORPUSCULAR VOLUME 87.5 fl (80.0-96.0); MONO # 0.9 10^3/uL (0.0-0.8); MONO % 8.2 % (2.0-8.0); NEUTROPHILS # 8.7 10^3/uL (1.5-8.5); NEUTROPHILS % 78.7 % (36.0-66.0); PLATELET COUNT, AUTOMATED 163 10^3/uL (150-450); RED BLOOD COUNT 4.57 10^6/uL (4.30-6.10)
[2023-08-11 07:02] LABS: BLOOD UREA NITROGEN 25 MG/DL (9-23); CALCIUM LEVEL 8.2 MG/DL (8.3-10.6); CARBON DIOXIDE LEVEL 25 MMOL/L (20-31); CHLORIDE LEVEL 105 MMOL/L (98-107); CREATININE FOR GFR 0.62 MG/DL (0.70-1.30); GLOMERULAR FILTRATION RATE > 60.0 (>42); GLUCOSE, FASTING 185 MG/DL (74-106); MAGNESIUM LEVEL 1.8 MG/DL (1.8-2.4); POTASSIUM SERUM 3.6 MMOL/L (3.5-5.1); SODIUM LEVEL 137 MMOL/L (136-145)
[2023-08-11 10:00] VITALS: BP 109/66; TEMP 98.2; O2SAT 90
[2023-08-11] MEDS ORDERED: INSU100I48 SQ (11:22)
[2023-08-11] MEDS ORDERED: METF500T13 PO (11:25)
[2023-08-11 14:00] VITALS: BP 103/64; TEMP 98.2; O2SAT 90
[2023-08-11 18:13] VITALS: BP 118/62; TEMP 98; O2SAT 91
[2023-08-11 20:16] VITALS: BP 102/48; TEMP 97.7; O2SAT 91
[2023-08-12 01:34] VITALS: BP 139/76; TEMP 97.9; O2SAT 89
[2023-08-12 05:15] VITALS: BP 121/63; TEMP 97.7; O2SAT 92
[2023-08-12 08:33] LABS: BASO % 0.2 % (0.0-1.0); EOS % 0.1 % (0.0-3.0); HEMATOCRIT 42.5 % (42.0-52.0); HEMOGLOBIN 14.6 g/dl (13.5-17.5); LYMPH # 1.4 10^3/uL (1.5-5.0); LYMPH % 13.8 % (24.0-44.0); MEAN CORPUSCULAR HEMOGLOBIN 30.1 pg (27.0-33.0); MEAN CORPUSCULAR HGB CONC 34.4 g/dl (32.0-36.5); MEAN CORPUSCULAR VOLUME 87.6 fl (80.0-96.0); MONO # 0.8 10^3/uL (0.0-0.8); MONO % 7.8 % (2.0-8.0); NEUTROPHILS # 7.9 10^3/uL (1.5-8.5); NEUTROPHILS % 77.1 % (36.0-66.0); PLATELET COUNT, AUTOMATED 193 10^3/uL (150-450); RED BLOOD COUNT 4.85 10^6/uL (4.30-6.10); WHITE BLOOD COUNT 10.3 10^3/uL (4.0-10.0)
[2023-08-12 09:02] LABS: BLOOD UREA NITROGEN 21 MG/DL (9-23); CALCIUM LEVEL 8.2 MG/DL (8.3-10.6); CARBON DIOXIDE LEVEL 25 MMOL/L (20-31); CHLORIDE LEVEL 106 MMOL/L (98-107); CREATININE FOR GFR 0.58 MG/DL (0.70-1.30); GLOMERULAR FILTRATION RATE > 60.0 (>42); GLUCOSE, FASTING 219 MG/DL (74-106); SODIUM LEVEL 139 MMOL/L (136-145)
[2023-08-12 10:00] VITALS: BP 133/72; TEMP 98.1; O2SAT 89
[2023-08-12 10:03] VITALS: BP 121/63
[2023-08-12] MEDS ORDERED: INSUHUMDS SC (10:36)
[2023-08-12] MEDS ORDERED: GLUC1TES2 XX (10:45)
[2023-08-12] MEDS ORDERED: LANC30MI XX (10:45)
[2023-08-12] MEDS ORDERED: INSU1MIS20 SC (10:45)
[2023-08-12] MEDS ORDERED: PEN-308 SC (10:45)
[2023-08-12] MEDS ORDERED: ALCOPAD25 TOP (10:45)
[2023-08-12] MEDS ORDERED: BLOOKIT21 XX (10:45)
[2023-08-12] MEDS: REMDESIVIR 100 MG in NS 250 ML IV ONE (11:57)
[2023-08-12] MEDS ORDERED: FLUZONE HIGH DOSE(65YR UP)QUAD/PF 240MCG/0.7ML SYRINGE IM.IMMUN ONE (12:00)
[2023-08-12] MEDS ORDERED: PREVNAR-20 VACCINE 0.5ML SYRINGE IM.IMMUN ONE (12:00)
[2023-08-13] MEDS ORDERED: ALCOPAD25 TOP (19:57)
[2023-08-13] MEDS ORDERED: BLOOKIT21 XX (19:57)
[2023-08-13] MEDS ORDERED: INSU100I48 SQ (19:57)
[2023-08-13] MEDS ORDERED: GLUC1TES2 SUBQ (19:57)
[2023-08-13] MEDS ORDERED: LANC30MI XX (19:57)
[2023-08-13] MEDS ORDERED: PEN-308 SC (19:57)
== END 2023-08-12 13:31 | disposition home or self-care (01) | DRG 871 ==
LOC: M ED 17:32 → EDBD 17:32 → M ED INP 08-10 00:50 → M MSPAV 08-10 03:02
PROVIDERS: ADMIT Internal Medicine; ATTEND Student in an Organized Health Care Education/Training Program
PROC: 3E0333Z Introduction of Anti-inflammatory into Peripheral Vein, Percutaneous Approach (ICD-10-PCS; principal; 2023-08-10)
PROC: XW033E5 Introduction of Remdesivir Anti-infective into Peripheral Vein, Percutaneous Approach, New Technology Group 5 (ICD-10-PCS; 2023-08-10)
DX: A41.89 Other specified sepsis (principal); U07.1 COVID-19; J12.82 Pneumonia due to coronavirus disease 2019; E87.1 Hypo-osmolality and hyponatremia; J44.0 Chronic obstructive pulmonary disease with (acute) lower respiratory infection; J44.1 Chronic obstructive pulmonary disease with (acute) exacerbation; E87.20 Acidosis, unspecified; N40.0 Benign prostatic hyperplasia without lower urinary tract symptoms; R65.20 Severe sepsis without septic shock; I25.10 Atherosclerotic heart disease of native coronary artery without angina pectoris; G43.909 Migraine, unspecified, not intractable, without status migrainosus; K21.9 Gastro-esophageal reflux disease without esophagitis; E78.5 Hyperlipidemia, unspecified; E11.65 Type 2 diabetes mellitus with hyperglycemia; Z79.82 Long term (current) use of aspirin; Z79.899 Other long term (current) drug therapy; Z88.0 Allergy status to penicillin; Z88.1 Allergy status to other antibiotic agents; Z88.2 Allergy status to sulfonamides; Z88.8 Allergy status to other drugs, medicaments and biological substances; I25.2 Old myocardial infarction; Z87.891 Personal history of nicotine dependence; Z86.73 Personal history of transient ischemic attack (TIA), and cerebral infarction without residual deficits

== ENCOUNTER → 2023-08-09 | Outpatient (REF) | payer MEDICARE, OTHER ==
[~2023-08-09] MED LIST changes: +ASPI81CH33 PO; +BUDE10.2 INH; +BUDE10.3 INH; +DUPI300P SQ; +FINA-48 PO; +LAMO150T3 PO; +OMEP-173 PO; -PROS5TAB PO
== END ==
LOC: M LAB REF 11:32
PROVIDERS: ATTEND Nurse Practitioner Adult Health
DX: B82.9 Intestinal parasitism, unspecified (principal)

== ENCOUNTER → 2023-10-03 | Outpatient (CLI) | payer MEDICARE, OTHER ==
[~2023-10-03] MED LIST changes: +ALCOPAD25 TOP; +ASPI81CH33 PO; +BLOOKIT21 XX; +BUDE10.2 INH; +BUDE10.3 INH; +DOXY-323 PO; -DOXY-443 PO; +DUPI300P SQ; +GLUC1TES2 SUBQ; +GLUC1TES2 XX; +INSU100I48 SQ; +INSU1MIS20 SC; +INSUHUMDS SC; +LAMO150T3 PO; +LANC30MI XX; +METF500T13 PO; +OMEP-173 PO; +PEN-308 SC; +RAMI1.258 PO; -RAMI1CAP21 PO
[2023-10-03 10:14] LABS: BASO # 0.1 10^3/uL (0.0-0.2); BASO % 0.5 % (0.0-1.0); EOS # 0.3 10^3/uL (0.0-0.5); EOS % 3.2 % (0.0-3.0); HEMATOCRIT 48.9 % (42.0-52.0); HEMOGLOBIN 16.1 g/dl (13.5-17.5); LYMPH # 1.2 10^3/uL (1.5-5.0); LYMPH % 12.6 % (24.0-44.0); MEAN CORPUSCULAR HEMOGLOBIN 30.1 pg (27.0-33.0); MEAN CORPUSCULAR HGB CONC 32.9 g/dl (32.0-36.5); MEAN CORPUSCULAR VOLUME 91.6 fl (80.0-96.0); MONO # 0.7 10^3/uL (0.0-0.8); MONO % 6.9 % (2.0-8.0); NEUTROPHILS # 7.2 10^3/uL (1.5-8.5); NEUTROPHILS % 75.8 % (36.0-66.0); PLATELET COUNT, AUTOMATED 190 10^3/uL (150-450); RED BLOOD COUNT 5.34 10^6/uL (4.30-6.10); WHITE BLOOD COUNT 9.5 10^3/uL (4.0-10.0)
[2023-10-03 10:44] LABS: ALBUMIN 3.3 G/DL (3.2-5.2); ALKALINE PHOSPHATASE 124 U/L (46-116); ALT/SGPT 28 U/L (7.0-40); AST/SGOT 13 U/L (<34); BILIRUBIN,TOTAL 0.6 MG/DL (0.3-1.2); BLOOD UREA NITROGEN 15 MG/DL (9-23); CALCIUM LEVEL 8.9 MG/DL (8.3-10.6); CARBON DIOXIDE LEVEL 27 MMOL/L (20-31); CHLORIDE LEVEL 106 MMOL/L (98-107); CREATININE FOR GFR 0.73 MG/DL (0.70-1.30); GLOMERULAR FILTRATION RATE > 60.0 (>42); GLUCOSE, FASTING 115 MG/DL (74-106); POTASSIUM SERUM 4.2 MMOL/L (3.5-5.1); SODIUM LEVEL 142 MMOL/L (136-145); TOTAL PROTEIN 6.1 G/DL (5.7-8.2)
[2023-10-10 17:07] LABS: LACOSAMIDE LEVEL 12.9 ug/mL (5.0-10.0); LAMOTRIGINE (LAMICTAL) 7.1 ug/mL (2.0-20.0)
== END ==
LOC: M LAB 09:08
PROVIDERS: ATTEND Psychiatry & Neurology Neurology
DX: R56.9 Unspecified convulsions (principal); I63.9 Cerebral infarction, unspecified; Z51.81 Encounter for therapeutic drug level monitoring; Z79.899 Other long term (current) drug therapy

== ENCOUNTER → 2023-10-03 | Outpatient (CLI) | payer MEDICARE, OTHER ==
[2023-10-03 10:17] LABS: HEMOGLOBIN 16.2 g/dl (13.5-17.5); MEAN CORPUSCULAR HEMOGLOBIN 30.4 pg (27.0-33.0); MEAN CORPUSCULAR HGB CONC 33.1 g/dl (32.0-36.5); MEAN CORPUSCULAR VOLUME 91.9 fl (80.0-96.0); PLATELET COUNT, AUTOMATED 217 10^3/uL (150-450); RED BLOOD COUNT 5.33 10^6/uL (4.30-6.10); WHITE BLOOD COUNT 9.4 10^3/uL (4.0-10.0)
[2023-10-03 10:46] LABS: ALBUMIN 3.3 G/DL (3.2-5.2); ALKALINE PHOSPHATASE 125 U/L (46-116); ALT/SGPT 27 U/L (7.0-40); AST/SGOT 13 U/L (<34); BILIRUBIN,TOTAL 0.6 MG/DL (0.3-1.2); BLOOD UREA NITROGEN 15 MG/DL (9-23); CALCIUM LEVEL 8.9 MG/DL (8.3-10.6); CARBON DIOXIDE LEVEL 28 MMOL/L (20-31); CHLORIDE LEVEL 106 MMOL/L (98-107); CHOLESTEROL LEVEL 83 MG/DL (<200); CHOLESTEROL RISK RATIO 2.44 (<5); CREATININE FOR GFR 0.72 MG/DL (0.70-1.30); GLOMERULAR FILTRATION RATE > 60.0 (>42); GLUCOSE, FASTING 117 MG/DL (74-106); LDL CHOLESTEROL 34.8 MG/DL (<100); MAGNESIUM LEVEL 1.6 MG/DL (1.8-2.4); POTASSIUM SERUM 4.4 MMOL/L (3.5-5.1); SODIUM LEVEL 142 MMOL/L (136-145); THYROID STIMULATING HORMONE 0.526 uIU/ML (0.55-4.78); TOTAL 25(OH) VITAMIN D 22.1 NG/ML (20.0-100.0); TRIGLYCERIDES LEVEL 71 MG/DL (<150)
[2023-10-03 10:47] LABS: FREE T4 1.02 NG/DL (0.89-1.76)
[2023-10-04 23:12] LABS: PSA TOTAL 3.1 ng/mL (0.0-4.0)
== END ==
LOC: M LAB 09:06
PROVIDERS: ATTEND Nurse Practitioner Adult Health
DX: R53.83 Other fatigue (principal); I10 Essential (primary) hypertension; E87.1 Hypo-osmolality and hyponatremia; I25.10 Atherosclerotic heart disease of native coronary artery without angina pectoris; A41.9 Sepsis, unspecified organism; E78.5 Hyperlipidemia, unspecified; E55.9 Vitamin D deficiency, unspecified; E11.9 Type 2 diabetes mellitus without complications; U09.9 Post COVID-19 condition, unspecified; R97.20 Elevated prostate specific antigen [PSA]; Z12.5 Encounter for screening for malignant neoplasm of prostate; Z79.899 Other long term (current) drug therapy

== ENCOUNTER → 2023-11-21 | Outpatient (REF) | payer MEDICARE, OTHER ==
[2023-11-21 12:40] LABS: APPEARANCE, URINE TURBID (CLEAR); BACTERIA, URINE AUTO NEGATIVE (NEGATIVE); BILIRUBIN, URINE AUTO NEGATIVE (NEGATIVE); BLOOD, URINE BLOOD NEGATIVE (NEGATIVE); COLOR, URINE YELLOW (YELLOW); GLUCOSE, URINE (UA) AUTO NEGATIVE (NEGATIVE); KETONE, URINE AUTO NEGATIVE (NEGATIVE); LEUKOCYTE ESTERASE, URINE AUTO 2+ (NEGATIVE); NITRITE, URINE AUTO NEGATIVE (NEGATIVE); PROTEIN, URINE AUTO 3+ mg/dL (NEGATIVE); RBC, URINE AUTO 0 /HPF (0-3); SPECIFIC GRAVITY URINE AUTO 1.019 (1.002-1.035); SQUAMOUS EPITHELIAL CELL UR AU 0 /HPF (0-6); UROBILINOGEN, URINE AUTO 0.2 mg/dL (0.0-2.0); WBC, URINE AUTO 0 /HPF (0-3)
== END ==
LOC: M SMT 12:17
PROVIDERS: ATTEND Urology
DX: N39.0 Urinary tract infection, site not specified (principal)

== ENCOUNTER → 2024-03-01 | Outpatient (CLI) | payer MEDICARE, OTHER ==
[2024-03-01 10:32] LABS: HEMATOCRIT 51.4 % (42.0-52.0); HEMOGLOBIN 17.2 g/dl (13.5-17.5); MEAN CORPUSCULAR HEMOGLOBIN 30.7 pg (27.0-33.0); MEAN CORPUSCULAR HGB CONC 33.5 g/dl (32.0-36.5); MEAN CORPUSCULAR VOLUME 91.8 fl (80.0-96.0); PLATELET COUNT, AUTOMATED 197 10^3/uL (150-450); WHITE BLOOD COUNT 9.7 10^3/uL (4.0-10.0)
[2024-03-01 11:11] LABS: HEMOGLOBIN A1c 6.4 % (4.0-6.0)
[2024-03-01 11:24] LABS: ALKALINE PHOSPHATASE 158 U/L (46-116); ALT/SGPT 28 U/L (7.0-40); AST/SGOT 9 U/L (<34); BILIRUBIN,TOTAL 0.6 MG/DL (0.3-1.2); BLOOD UREA NITROGEN 15 MG/DL (9-23); CALCIUM LEVEL 9.3 MG/DL (8.3-10.6); CARBON DIOXIDE LEVEL 26 MMOL/L (20-31); CHLORIDE LEVEL 104 MMOL/L (98-107); CHOLESTEROL LEVEL 98 MG/DL (<200); CHOLESTEROL RISK RATIO 2.75 (<5); CREATININE FOR GFR 0.76 MG/DL (0.70-1.30); GLOMERULAR FILTRATION RATE > 60.0 (>42); GLUCOSE, FASTING 128 MG/DL (74-106); HDL CHOLESTEROL 35.6 MG/DL (>40); LDL CHOLESTEROL 44.6 MG/DL (<100); MAGNESIUM LEVEL 1.7 MG/DL (1.8-2.4); NON-HDL-C 62.4 MG/DL; POTASSIUM SERUM 3.9 MMOL/L (3.5-5.1); SODIUM LEVEL 138 MMOL/L (136-145); TOTAL PROTEIN 6.8 G/DL (5.7-8.2); TRIGLYCERIDES LEVEL 89 MG/DL (<150)
[2024-03-01 11:25] LABS: FREE T4 1.12 NG/DL (0.89-1.76); THYROID STIMULATING HORMONE 0.426 uIU/ML (0.55-4.78)
[2024-03-01 11:26] LABS: TOTAL 25(OH) VITAMIN D 37.2 NG/ML (20.0-100.0)
[2024-03-05 13:57] LABS: PSA FREE 0.4 ng/mL; PSA TOTAL 3.4 ng/mL (< OR = 4.0)
== END ==
LOC: M LAB 09:41
PROVIDERS: ATTEND Nurse Practitioner Adult Health
DX: I10 Essential (primary) hypertension (principal); R53.83 Other fatigue; E87.1 Hypo-osmolality and hyponatremia; A41.9 Sepsis, unspecified organism; I25.10 Atherosclerotic heart disease of native coronary artery without angina pectoris; Z79.899 Other long term (current) drug therapy; E55.9 Vitamin D deficiency, unspecified; U09.9 Post COVID-19 condition, unspecified; R97.20 Elevated prostate specific antigen [PSA]; Z12.5 Encounter for screening for malignant neoplasm of prostate

== ENCOUNTER → 2024-04-05 | Outpatient (REF) | payer MEDICARE, OTHER ==
[~2024-04-05] MED LIST changes: -DOXY-323 PO; +DOXY-441 PO
[2024-04-05 18:28] LABS: APPEARANCE, URINE CLEAR (CLEAR); BACTERIA, URINE AUTO 1+ (NEGATIVE); BILIRUBIN, URINE AUTO NEGATIVE (NEGATIVE); BLOOD, URINE BLOOD 2+ (NEGATIVE); COLOR, URINE COLORLESS (YELLOW); GLUCOSE, URINE (UA) AUTO NEGATIVE (NEGATIVE); KETONE, URINE AUTO NEGATIVE (NEGATIVE); LEUKOCYTE ESTERASE, URINE AUTO 2+ (NEGATIVE); MUCUS, URINE SMALL (NEGATIVE); NITRITE, URINE AUTO NEGATIVE (NEGATIVE); PROTEIN, URINE AUTO 1+ mg/dL (NEGATIVE); RBC, URINE AUTO 32 /HPF (0-3); SPECIFIC GRAVITY URINE AUTO 1.004 (1.002-1.035); SQUAMOUS EPITHELIAL CELL UR AU 0 /HPF (0-6); UROBILINOGEN, URINE AUTO 0.2 mg/dL (0.0-2.0); WBC, URINE AUTO 47 /HPF (0-3)
== END ==
LOC: M SMT 17:11
PROVIDERS: ATTEND Urology
DX: N39.0 Urinary tract infection, site not specified (principal)

== ENCOUNTER → 2024-05-29 | Outpatient (REF) | payer MEDICARE, OTHER ==
[~2024-05-29] MED LIST changes: +ATOR-398 PO; -LIPI80TA PO; +NYST1POW3 TOP; -NYST1POW9 TOP
[2024-05-29 14:08] LABS: AMORPHOUS SEDIMENT MODERATE (NEGATIVE); APPEARANCE, URINE TURBID (CLEAR); BACTERIA, URINE AUTO NEGATIVE (NEGATIVE); BILIRUBIN, URINE AUTO NEGATIVE (NEGATIVE); BLOOD, URINE BLOOD 1+ (NEGATIVE); COLOR, URINE AMBER (YELLOW); GLUCOSE, URINE (UA) AUTO NEGATIVE (NEGATIVE); KETONE, URINE AUTO TRACE mg/dL (NEGATIVE); LEUKOCYTE ESTERASE, URINE AUTO 1+ (NEGATIVE); NITRITE, URINE AUTO NEGATIVE (NEGATIVE); PROTEIN, URINE AUTO 3+ mg/dL (NEGATIVE); RBC, URINE AUTO 17 /HPF (0-3); SPECIFIC GRAVITY URINE AUTO 1.023 (1.002-1.035); SQUAMOUS EPITHELIAL CELL UR AU 3 /HPF (0-6); TRIPLE PHOSPHATE CRYSTALS SMALL; UROBILINOGEN, URINE AUTO 0.2 mg/dL (0.0-2.0); WBC, URINE AUTO 29 /HPF (0-3)
== END ==
LOC: M SMT 12:45
PROVIDERS: ATTEND Physician Assistant
DX: R30.0 Dysuria (principal)

== ENCOUNTER → 2024-06-25 | Outpatient (REF) | payer MEDICARE, OTHER ==
[2024-06-25 13:36] LABS: APPEARANCE, URINE CLOUDY (CLEAR); BACTERIA, URINE AUTO 2+ (NEGATIVE); BILIRUBIN, URINE AUTO NEGATIVE (NEGATIVE); BLOOD, URINE BLOOD 3+ (NEGATIVE); COLOR, URINE AMBER (YELLOW); GLUCOSE, URINE (UA) AUTO 2+ mg/dL (NEGATIVE); KETONE, URINE AUTO TRACE mg/dL (NEGATIVE); LEUKOCYTE ESTERASE, URINE AUTO 2+ (NEGATIVE); MUCUS, URINE SMALL (NEGATIVE); NITRITE, URINE AUTO POSITIVE (NEGATIVE); PROTEIN, URINE AUTO 2+ mg/dL (NEGATIVE); RBC, URINE AUTO TNTC /HPF (0-3); SPECIFIC GRAVITY URINE AUTO 1.026 (1.002-1.035); SQUAMOUS EPITHELIAL CELL UR AU 0 /HPF (0-6); WBC, URINE AUTO TNTC /HPF (0-3)
== END ==
LOC: M SMT 12:55
PROVIDERS: ATTEND Urology
DX: N39.0 Urinary tract infection, site not specified (principal)

== ENCOUNTER → 2024-08-07 | Outpatient (REF) | payer MEDICARE, OTHER ==
[2024-08-07 13:34] LABS: APPEARANCE, URINE HAZY (CLEAR); BACTERIA, URINE AUTO 1+ (NEGATIVE); BILIRUBIN, URINE AUTO NEGATIVE (NEGATIVE); BLOOD, URINE BLOOD 3+ (NEGATIVE); COLOR, URINE STRAW (YELLOW); GLUCOSE, URINE (UA) AUTO 1+ mg/dL (NEGATIVE); KETONE, URINE AUTO NEGATIVE (NEGATIVE); LEUKOCYTE ESTERASE, URINE AUTO 2+ (NEGATIVE); MUCUS, URINE SMALL (NEGATIVE); NITRITE, URINE AUTO NEGATIVE (NEGATIVE); PROTEIN, URINE AUTO NEGATIVE (NEGATIVE); RBC, URINE AUTO TNTC /HPF (0-3); SPECIFIC GRAVITY URINE AUTO 1.006 (1.002-1.035); SQUAMOUS EPITHELIAL CELL UR AU 0 /HPF (0-6); UROBILINOGEN, URINE AUTO 0.2 mg/dL (0.0-2.0); WBC, URINE AUTO 44 /HPF (0-3)
== END ==
LOC: M SMT 12:29
PROVIDERS: ATTEND Physician Assistant
DX: R30.0 Dysuria (principal)

== ENCOUNTER → 2025-01-17 | Outpatient (REF) | payer MEDICARE, OTHER ==
[~2025-01-17] MED LIST changes: +TAMS-18 PO
[2025-01-17 17:16] LABS: APPEARANCE, URINE TURBID (CLEAR); BACTERIA, URINE AUTO 1+ (NEGATIVE); BILIRUBIN, URINE AUTO NEGATIVE (NEGATIVE); BLOOD, URINE BLOOD 3+ (NEGATIVE); GLUCOSE, URINE (UA) AUTO 1+ mg/dL (NEGATIVE); KETONE, URINE AUTO NEGATIVE (NEGATIVE); LEUKOCYTE ESTERASE, URINE AUTO 3+ (NEGATIVE); NITRITE, URINE AUTO NEGATIVE (NEGATIVE); PROTEIN, URINE AUTO 3+ mg/dL (NEGATIVE); RBC, URINE AUTO TNTC /HPF (0-3); SPECIFIC GRAVITY URINE AUTO 1.019 (1.002-1.035); SQUAMOUS EPITHELIAL CELL UR AU 2 /HPF (0-6); UROBILINOGEN, URINE AUTO 0.2 mg/dL (0.0-2.0); WBC, URINE AUTO TNTC /HPF (0-3)
== END ==
LOC: M SMT 16:36
PROVIDERS: ATTEND Urology
DX: R33.9 Retention of urine, unspecified (principal)

== ENCOUNTER → 2025-03-15 | Outpatient (CLI) | payer MEDICARE, OTHER ==
[2025-03-15 15:01] LABS: PLATELET COUNT, AUTOMATED 180 10^3/uL (150-450)
[2025-03-15 15:23] LABS: ALT/SGPT 27 U/L (7.0-40); AST/SGOT 16 U/L (<34); CALCIUM LEVEL 8.6 MG/DL (8.3-10.6); CARBON DIOXIDE LEVEL 26 MMOL/L (20-31); CHLORIDE LEVEL 106 MMOL/L (98-107); CHOLESTEROL LEVEL 74 MG/DL (<200); CREATININE FOR GFR 0.80 MG/DL (0.70-1.30); FREE T4 1.07 NG/DL (0.89-1.76); GLOMERULAR FILTRATION RATE > 90.0 (>42); MAGNESIUM LEVEL 1.9 MG/DL (1.8-2.4); POTASSIUM SERUM 4.3 MMOL/L (3.5-5.1); SODIUM LEVEL 141 MMOL/L (136-145)
[2025-03-15 15:42] LABS: ESTIMATED AVERAGE GLUCOSE 131.0 MG/DL (60-110)
== END ==
LOC: M LAB 11:51
DX: E11.9 Type 2 diabetes mellitus without complications (principal); E78.5 Hyperlipidemia, unspecified; E83.42 Hypomagnesemia; I10 Essential (primary) hypertension